=== PATIENT | female | born 1930 | race Caucasian/White ===

== ENCOUNTER 2017-03-30 03:37 | Inpatient (IN) | payer MEDICARE ==
[~2017-03-30] VITALS: Ht 170.2 cm; Wt 54.4 kg
[~2017-03-30 03:37] MED LIST: ADVAIR 250-501 EACH INH; ASPIRIN81 MG ORAL; AZELASTINE137 MCG/0. NS; CARDIZEM60 MG ORAL; COMBIGAN EYE DRO5 ML OP; DOCUSATE SODIU100 MG ORAL; IPRATROPIU0.2 MG/1 M HHN; LATANOPROST2.5 ML BOTH EYES; LISINOPRIL2.5 MG ORAL; LORATADINE10 M2 PO; MIRALAX17 G2 ORAL; MIRTAZAPINE15 M3 ORAL; NASACORT10.8 ML INH; PROBIOTIC1 EAC2 PO; SPIRIVA INHALE1 PUF1 INH; TUSSIN CHE100 MG/5 M PO; TYLENOL650 MG/20. ORAL; ZANTAC150 MG ORAL
[2017-03-30 06:00] VITALS: BP 88/63
[2017-03-30] MEDS ORDERED: MULTIVITAMINS1 EAC2 ORAL (06:17)
[2017-03-30] MEDS ORDERED: MUCINEX100 MG PO (06:18)
[2017-03-30] MEDS ORDERED: DULCOLAX5 MG PO (06:20)
[2017-03-30] MEDS ORDERED: LORAZEPAM I2 MG/1 ML ORAL (06:21)
[2017-03-30] MEDS ORDERED: LORATADINE10 M3 PO (06:24)
[2017-03-30] MEDS ORDERED: ACETAMINOPHEN325 M1 ORAL (06:24)
[2017-03-30] MEDS ORDERED: ARMOUR THYROID60 MG PO (06:25)
[2017-03-30] MEDS ORDERED: PROBIOTIC1 EAC2 PO (06:26)
[2017-03-30 06:35] VITALS: BP 92/64
[2017-03-30 08:05] VITALS: BP 93/64
[2017-03-30] MEDS ORDERED: Albuterol/Ipratropium 3ml neb HHN PRN (10:30)
[2017-03-30] MEDS ORDERED: Bisacodyl EC 5mg tab ORAL PRN (10:45)
[2017-03-30] MEDS ORDERED: LORazepam 0.5mg tab ORAL PRN (11:00)
[2017-03-30] MEDS ORDERED: guaiFENesin 100mg/5ml Liq ud ORAL PRN (11:00)
[2017-03-30] MEDS ORDERED: Miralax 17gm pkt ORAL PRN (11:00)
[2017-03-30] MEDS: NovoLOG Insulin Flexpen SUBQ SCH ×3 (11:30→21:00)
[2017-03-30 12:04] VITALS: BP 132/89
[2017-03-30] MEDS: dilTIAZem HCl 60mg tab ORAL SCH ×2 (12:36→18:29)
--- NOTE | 2017-03-30 13:31 | Consultation ---
History of Present Illness Present Illness HPI 86 yo female with mmp, Allergies: Coded Allergies: MORPHINE (Verified Allergy, Unknown, 08/28/16) PENICILLINS (Verified Allergy, Unknown, 08/28/16) SULFA (SULFONAMIDE ANTIBIOTICS) (Verified Allergy, Unknown, 08/28/16) Uncoded Allergies: Demoral (Allergy, Unknown, 08/28/16) thimersol (Allergy, Unknown, 08/28/16) Medication History Scheduled Aspirin* (Aspirin*), 81 MG ORAL DAILY, (Reported) Azelastine Hcl (Azelastine Hcl), 137 MCG NS BID, (Reported) Bisacodyl (Dulcolax), 5 MG PO NEEDED, (Reported) Brimonidine Tartrate/Timolol (Combigan Eye Drops), 5 ML OP BID, (Reported) Diltiazem Hcl* (Cardizem*), 60 MG ORAL TID, (Reported) Docusate Sodium* (Docusate Sodium*), 100 MG ORAL TWICE A DAY, (Reported) Fluticasone/Salmeterol (Advair 250-50 Diskus), 1 PUFF INH BID, (Reported) Guaifenesin (Mucinex), 600 MG PO BID, (Reported) Lactobacillus Acidophilus (Probiotic), 1 EACH PO DAILY, (Reported) Lactobacillus Acidophilus (Probiotic), 1 EACH PO DAILY, (Reported) Latanoprost* (Xalatan*), 1 DROP BOTH EYES BEDTIME, (Reported) Lisinopril* (Lisinopril*), 2.5 MG ORAL DAILY, (Reported) Loratadine (Loratadine), 10 MG PO DAILY, (Reported) Loratadine (Loratadine), 10 MG PO DAILY, (Reported) Mirtazapine* (Mirtazapine*), 15 MG ORAL BEDTIME, (Reported) Multivitamins* (Multivitamins*), 1 TAB ORAL DAILY, (Reported) Polyethylene Glycol 3350* (Miralax*), 17 GM ORAL DAILY, (Reported) Ranitidine Hcl* (Zantac*), 150 MG ORAL TWICE A DAY, (Reported) Thyroid,Pork ([place] Thyroid), 60 MG PO ACBREAKFAST, (Reported) Tiotropium [place] (Spiriva), 2 PUFF INH DAILY, (Reported) Triamcinolone Acetonide (Nasacort), 55 MCG INH BID, (Reported) Scheduled PRN Acetaminophen (Acetaminophen), 325 MG ORAL Q6H PRN for For Pain, (Reported) Acetaminophen* (Acetaminophen 325MG Tablet*), 325 MG ORAL Q6H PRN for Pain Scale (3-5), (Reported) Guaifenesin (Tussin Chest Congestion), 100 MG PO Q6HR PRN for For Cough, ( Reported) Ipratropium [place] 0.5MG/2.5ML (Ipratropium [place] 0.5MG/2.5ML), 0.5 MG HHN Q6H PRN for Shortness of Breath, (Reported) Lorazepam (Lorazepam Intensol), 1 MG ORAL NEEDED PRN for For Anxiety, ( Reported) Patient History Healthcare decision maker Resuscitation status Advanced Directive on File Physical Exam Last 24 Hour Vital Signs Date Time Temp Pulse Resp B/P (MAP) Pulse Ox O2 Delivery O2 Flow Rate FiO2 03/30/17 12:36 96 132/89 03/30/17 12:04 98.2 96 20 132/89 98 Room Air 03/30/17 08:05 97.3 96 20 93/64 95 Room Air 03/30/17 06:35 92/64 03/30/17 06:00 97.4 110 18 88/63 94 Room Air Intake and Output 03/30/17 03/31/17 19:00 07:00 Intake Total 240 ml Balance 240 ml Intake Oral 240 ml # Voids 1 Height (Feet): 5 Height (Inches): 7.00 Weight (Pounds): 120 Medications Current Medications Medications (Trade) Dose Ordered Sig/Say Route PRN Reason Start Time Stop Time Status Last Admin Dose Admin Acetaminophen (Tylenol) 325 mg Q6H PRN ORAL Mild Pain/Temp > 100.5 03/30/17 10:45 04/29/17 10:44 Albuterol/ Ipratropium (DuoNeb 0.5-3(2.5)mg/3ml) 3 ml Q4H PRN HHN Shortness of Breath 03/30/17 10:30 04/04/17 10:29 Albuterol/ Ipratropium (DuoNeb 0.5-3(2.5)mg/3ml) 3 ml Q8HRT HHN 03/30/17 15:00 04/04/17 14:59 Aspirin (ASA) 81 mg DAILY ORAL 03/31/17 09:00 04/30/17 08:59 Bisacodyl (Dulcolax) 5 mg DAILYPRN PRN ORAL Constipation 03/30/17 10:45 04/29/17 10:44 Cetirizine HCl (ZyrTEC) 10 mg DAILY PRN ORAL allergy 03/30/17 11:00 04/29/17 10:59 Dextrose (Dextrose 50%) STAT PRN IV Hypoglycemia 03/30/17 10:45 04/29/17 10:44 Diltiazem HCl (Cardizem) 60 mg TID ORAL 03/30/17 13:00 04/29/17 12:59 03/30/17 12:36 Docusate Sodium (Colace) 100 mg TWICE A DAY ORAL 03/30/17 18:00 04/29/17 17:59 Dorzolamide/ Timolol (Cosopt) 1 drop BID BOTH EYES 03/30/17 18:00 04/29/17 17:59 Guaifenesin (Mucinex ER) 600 mg TWICE A DAY ORAL 03/30/17 18:00 04/29/17 17:59 Guaifenesin (Robitussin) 100 mg Q6H PRN ORAL For Cough 03/30/17 11:00 04/29/17 10:59 Heparin Sodium (Porcine) (Heparin 5000 units/ml) 5,000 units EVERY 12 HOURS SUBQ 03/30/17 21:00 04/29/17 20:59 Insulin Aspart (NovoLOG) BEFORE MEALS AND HS SUBQ 03/30/17 11:30 04/29/17 11:29 Lactobacillus Acidophilus (Culturelle) 1 tab DAILY ORAL 03/31/17 09:00 04/30/17 08:59 Latanoprost (Xalatan) 1 drop BEDTIME BOTH EYES 03/30/17 21:00 04/29/17 20:59 Lisinopril (Zestril) 2.5 mg DAILY ORAL 03/31/17 09:00 04/30/17 08:59 Lorazepam (Ativan) 0.5 mg Q8H PRN ORAL For Anxiety 03/30/17 11:00 04/06/17 10:59 Methylprednisolone Sodium Succinate (Solu-MEDROL) 80 mg EVERY 8 HOURS IVP 03/30/17 14:00 04/29/17 13:59 Mirtazapine (Remeron) 15 mg BEDTIME ORAL 03/30/17 21:00 04/29/17 20:59 Non-Formulary Medication (Non-Formulary Med) 1 ea BID INH 03/30/17 18:00 04/29/17 17:59 UNV Polyethylene Glycol (Miralax) 17 gm DAILY PRN ORAL Constipation 03/30/17 11:00 04/29/17 10:59 Ranitidine HCl (Zantac) 150 mg TWICE A DAY ORAL 03/30/17 18:00 04/29/17 17:59 Thyroid ([place] Thyroid) 60 mg ACBREAKFAST ORAL 03/31/17 06:30 04/30/17 06:29 Chauncey Giordano M.D. Mar 30, 2017 13:31
[2017-03-30] MEDS: Solu-MEDROL 40mg Inj IVP SCH ×2 (13:40→22:09)
[2017-03-30] MEDS: Albuterol/Ipratropium 3ml neb HHN SCH ×2 (14:48→22:59)
[2017-03-30 16:03] VITALS: BP 132/76
--- NOTE | 2017-03-30 17:19 | History & Physical ---
History and Physical History & Physicial Dictated for Int Med Dr Colon no. [id number]. PATRICIA EARLY Mar 30, 2017 17:19
[2017-03-30] MEDS: Cosopt Opth Soln 10 mL Btl BOTH EYES SCH ×2 (18:00→18:29)
[2017-03-30] MEDS: Docusate 100mg cap ORAL SCH (18:29)
[2017-03-30] MEDS: guaiFENesin ER 600mg tab ORAL SCH (18:30)
--- NOTE | 2017-03-30 18:44 | Consultation ---
History of Present Illness General Date patient seen: Mar 30, 2017 Chief Complaint: Shortness of breath Referring physician: Dr. Lazaro Reason for Consultation: Shortenss of breath Present Illness HPI The patient is a 86-year old gentle lady with pmhx HTN COPD dyslipidemia anxiety disorder, depression, hypothyroidism, lung cancer, cerebral anuerysm and glaucoma who presents to ED complaining of shortness of breath. She is a resident of [facility] and according to staff the patient became short of breath acutely. EMS was called and subsequently she was initially transported to [facility] where she was diagnosed to have COPD exacerbation. She was then transferred to [facility] for insurance purposes and I was asked to consult on this case from pulmonary and internal medicine point of view for treatment and managment of the patients serious medical condition. The patient is awake but noticebly weak and has complaints of difficulty "catching her breath". Patient has been initiated on supplemental oxygen, breathing treatments and systemic corticosteroids to calm an apparent excacerbation of obstructive lung disease. No complaints of hemoptysis, productive cough, fever or chills, no complaints of chest pain or headache. Allergies: Coded Allergies: MEPERIDINE (Unverified Allergy, Unknown, 04/01/17) MORPHINE (Verified Allergy, Unknown, 08/28/16) PENICILLINS (Verified Allergy, Unknown, 08/28/16) SULFA (SULFONAMIDE ANTIBIOTICS) (Verified Allergy, Unknown, 08/28/16) THIMEROSAL (Unverified Allergy, Unknown, 04/01/17) Uncoded Allergies: Demoral (Allergy, Unknown, 08/28/16) thimersol (Allergy, Unknown, 08/28/16) Medication History Scheduled Aspirin* (Aspirin*), 81 MG ORAL DAILY, (Reported) Azelastine Hcl (Azelastine Hcl), 137 MCG NS BID, (Reported) Bisacodyl (Dulcolax), 5 MG PO NEEDED, (Reported) Brimonidine Tartrate/Timolol (Combigan Eye Drops), 5 ML OP BID, (Reported) Diltiazem Hcl* (Cardizem*), 60 MG ORAL TID, (Reported) Docusate Sodium* (Docusate Sodium*), 100 MG ORAL TWICE A DAY, (Reported) Fluticasone/Salmeterol (Advair 250-50 Diskus), 1 PUFF INH BID, (Reported) Guaifenesin (Mucinex), 600 MG PO BID, (Reported) Lactobacillus Acidophilus (Probiotic), 1 EACH PO DAILY, (Reported) Lactobacillus Acidophilus (Probiotic), 1 EACH PO DAILY, (Reported) Latanoprost* (Xalatan*), 1 DROP BOTH EYES BEDTIME, (Reported) Lisinopril* (Lisinopril*), 2.5 MG ORAL DAILY, (Reported) Loratadine (Loratadine), 10 MG PO DAILY, (Reported) Loratadine (Loratadine), 10 MG PO DAILY, (Reported) Mirtazapine* (Mirtazapine*), 15 MG ORAL BEDTIME, (Reported) Multivitamins* (Multivitamins*), 1 TAB ORAL DAILY, (Reported) Polyethylene Glycol 3350* (Miralax*), 17 GM ORAL DAILY, (Reported) Ranitidine Hcl* (Zantac*), 150 MG ORAL TWICE A DAY, (Reported) Thyroid,Pork ([place] Thyroid), 60 MG PO ACBREAKFAST, (Reported) Tiotropium [place] (Spiriva), 2 PUFF INH DAILY, (Reported) Triamcinolone Acetonide (Nasacort), 55 MCG INH BID, (Reported) Scheduled PRN Acetaminophen (Acetaminophen), 325 MG ORAL Q6H PRN for For Pain, (Reported) Acetaminophen* (Acetaminophen 325MG Tablet*), 325 MG ORAL Q6H PRN for Pain Scale (3-5), (Reported) Guaifenesin (Tussin Chest Congestion), 100 MG PO Q6HR PRN for For Cough, ( Reported) Ipratropium [place] 0.5MG/2.5ML (Ipratropium [place] 0.5MG/2.5ML), 0.5 MG HHN Q6H PRN for Shortness of Breath, (Reported) Lorazepam (Lorazepam Intensol), 1 MG ORAL NEEDED PRN for For Anxiety, ( Reported) Patient History Healthcare decision maker Resuscitation status Advanced Directive on File Past Medical/Surgical History Past Medical/Surgical History: (1) Episode of generalized weakness (2) COPD (chronic obstructive pulmonary disease) (3) Shortness of breath (4) Anxiety (5) Cough (6) Hypercholesteremia (7) Depression (8) Hypothyroidism (9) Lung cancer (10) Glaucoma (11) Cerebral aneurysm (12) HTN (hypertension) Review of Systems Constitutional: Reports: malaise, weakness Respiratory: Reports: shortness of breath, wheezing Physical Exam General Appearance: no apparent distress, alert Lines, tubes and drains: peripheral HEENT: normocephalic, atraumatic, anicteric, PERRL Neck: non-tender, normal alignment, supple, normal inspection Respiratory/Chest: chest wall non-tender, decreased breath sounds, accessory muscle use, crackles/rales, expiratory wheezing, inspiratory wheezing Breasts: no masses Cardiovascular/Chest: normal peripheral pulses, normal rate, regular rhythm, no JVD Abdomen: normal bowel sounds, non tender, soft, no organomegaly, no mass Genitourinary/Rectal: normal genital exam, normal rectal exam Extremities: normal range of motion, non-tender, normal inspection, no calf tenderness Skin Exam: normal pigmentation, warm/dry 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: 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 normal, no motor/sensory deficits Last 24 Hour Vital Signs Date Time Temp Pulse Resp B/P (MAP) Pulse Ox O2 Delivery O2 Flow Rate FiO2 03/30/17 18:29 91 132/76 03/30/17 16:03 98.0 91 20 132/76 98 Room Air 03/30/17 14:48 Room Air 03/30/17 14:48 Room Air 03/30/17 12:36 96 132/89 03/30/17 12:04 98.2 96 20 132/89 98 Room Air 03/30/17 08:05 97.3 96 20 93/64 95 Room Air 03/30/17 06:35 92/64 03/30/17 06:00 97.4 110 18 88/63 94 Room Air Intake and Output 03/30/17 03/31/17 19:00 07:00 Intake Total 360 ml Balance 360 ml Intake Oral 360 ml # Voids 2 Laboratory Tests Test 03/30/17 13:35 Phosphorus Level 3.5 mg/dL (2.5-4.8) Height (Feet): 5 Height (Inches): 7.00 Weight (Pounds): 120 Medications Current Medications Medications (Trade) Dose Ordered Sig/Say Route PRN Reason Start Time Stop Time Status Last Admin Dose Admin Acetaminophen (Tylenol) 325 mg Q6H PRN ORAL Mild Pain/Temp > 100.5 03/30/17 10:45 04/29/17 10:44 Albuterol/ Ipratropium (DuoNeb 0.5-3(2.5)mg/3ml) 3 ml Q4H PRN HHN Shortness of Breath 03/30/17 10:30 04/04/17 10:29 Albuterol/ Ipratropium (DuoNeb 0.5-3(2.5)mg/3ml) 3 ml Q8HRT HHN 03/30/17 15:00 04/04/17 14:59 Aspirin (ASA) 81 mg DAILY ORAL 03/31/17 09:00 04/30/17 08:59 Bisacodyl (Dulcolax) 5 mg DAILYPRN PRN ORAL Constipation 03/30/17 10:45 04/29/17 10:44 Cetirizine HCl (ZyrTEC) 10 mg DAILY PRN ORAL allergy 03/30/17 11:00 04/29/17 10:59 Dextrose (Dextrose 50%) STAT PRN IV Hypoglycemia 03/30/17 10:45 04/29/17 10:44 Diltiazem HCl (Cardizem) 60 mg TID ORAL 03/30/17 13:00 04/29/17 12:59 03/30/17 18:29 Docusate Sodium (Colace) 100 mg TWICE A DAY ORAL 03/30/17 18:00 04/29/17 17:59 03/30/17 18:29 Dorzolamide/ Timolol (Cosopt) 1 drop BID BOTH EYES 03/30/17 18:00 04/29/17 17:59 Guaifenesin (Mucinex ER) 600 mg TWICE A DAY ORAL 03/30/17 18:00 04/29/17 17:59 03/30/17 18:30 Guaifenesin (Robitussin) 100 mg Q6H PRN ORAL For Cough 03/30/17 11:00 04/29/17 10:59 Heparin Sodium (Porcine) (Heparin 5000 units/ml) 5,000 units EVERY 12 HOURS SUBQ 03/30/17 21:00 04/29/17 20:59 Insulin Aspart (NovoLOG) BEFORE MEALS AND HS SUBQ 03/30/17 11:30 04/29/17 11:29 Lactobacillus Acidophilus (Culturelle) 1 tab DAILY ORAL 03/31/17 09:00 04/30/17 08:59 Latanoprost (Xalatan) 1 drop BEDTIME BOTH EYES 03/30/17 21:00 04/29/17 20:59 Lisinopril (Zestril) 2.5 mg DAILY ORAL 03/31/17 09:00 04/30/17 08:59 Lorazepam (Ativan) 0.5 mg Q8H PRN ORAL For Anxiety 03/30/17 11:00 04/06/17 10:59 Methylprednisolone Sodium Succinate (Solu-MEDROL) 80 mg EVERY 8 HOURS IVP 03/30/17 14:00 04/29/17 13:59 03/30/17 13:40 Mirtazapine (Remeron) 15 mg BEDTIME ORAL 03/30/17 21:00 04/29/17 20:59 Non-Formulary Medication (Non-Formulary Med) 1 ea BID INH 03/30/17 18:00 04/29/17 17:59 UNV Polyethylene Glycol (Miralax) 17 gm DAILY PRN ORAL Constipation 03/30/17 11:00 04/29/17 10:59 Ranitidine HCl (Zantac) 150 mg TWICE A DAY ORAL 03/30/17 18:00 04/29/17 17:59 03/30/17 18:29 Thyroid ([place] Thyroid) 60 mg ACBREAKFAST ORAL 03/31/17 06:30 04/30/17 06:29 Assessment/Plan Status: stable, progressing Assessment/Plan Acute dyspnea Acute COPD excacerbation Hx Lung Cancer Hx COPD HTN Hypothyroidism Anxiety disorder Depression Dyslipidemia Plan Supplemental oxygen titrate fio2 up maintain o2 sat above 92% Aspiration precautions Labs examined Breathing treatments as needed for SOB Systemic corticosteroids Pulmonary hygiene AAMIR HAMMER Mar 30, 2017 18:44
[2017-03-30 20:16] VITALS: BP 95/53
[2017-03-30] MEDS: Heparin 5000 units/ml inj SUBQ SCH (21:00)
[2017-03-30] MEDS: Latanoprost 0.005% Opth 2.5ml Soln BOTH EYES SCH (21:00)
[2017-03-31] VITALS (7 sets, daily range): BP systolic 91–107; BP diastolic 54–89
--- NOTE | 2017-03-31 03:00 | History and Physical Report ---
DATE OF ADMISSION: 03/30/2017 Chief Complaint: The patient is an 86-year-old white female, who presents with chief complaint of shortness of breath. History of PRESENT ILLNESS: Much of the history and physical was obtained from the patient's chart. The patient herself is upset. The patient states "just let me sleep." According to the medical record, the patient is a resident of [facility]. According to staff at [facility], the patient became short of breath acutely on 03/29/2017. EMS was called. The patient was transported to [facility] emergency room. The patient was diagnosed with COPD exacerbation. The patient is transferred to [facility] for insurance purposes. The patient was admitted for chronic obstructive pulmonary disease, acute exacerbation. PAST MEDICAL HISTORY: Significant for: 1. Chronic obstructive pulmonary disease. 2. History of lung cancer in 2013. 3. History of cerebral aneurysm. 4. Hypercholesterolemia. 5. Hypothyroidism. 6. Anxiety. 7. Depression. 8. Glaucoma. PAST SURGICAL HISTORY: The patient denies. MEDICATIONS: Current medications from [facility]: 1. Acetylcysteine one spray in each nostril twice daily. 2. Triamcinolone (Nasacort) one spray in both nostrils twice daily. 3. Multivitamin one tablet p.o. daily. 4. Mucinex 800 mg one tablet p.o. twice daily. 5. Latanoprost ophthalmic solution 0.005% one drop to both eyes daily at bedtime. 6. Combigan ophthalmic solution one drop to both eyes b.i.d. 7. [place] Thyroid 80 mg p.o. daily. 8. Atrovent nebulized q.6 h. p.r.n. 9. Advair 250/50 mcg one puff p.o. twice daily. 10. Spiriva 18 mcg two puffs p.o. daily. 11. Vitamin D3 50,000 units p.o. q. weekly on Sunday. 12. Zantac 150 mg one tablet p.o. twice daily. 13. Lisinopril 2.5 mg one tablet p.o. daily. 14. Probiotic 1.5 billion cells one capsule p.o. daily. 15. Claritin 10 mg one tablet p.o. every morning. 16. MiraLax 18 g p.o. daily. 17. Aspirin 81 mg one tablet p.o. every morning. 18. Diltiazem 60 mg one tablet p.o. t.i.d. 19. Compazine 5 mg one tablet p.o. twice daily p.r.n. 20. Dulcolax 5 mg one tablet p.o. daily p.r.n. 21. Ativan 1 mg one tablet p.o. q.4 h. p.r.n. 22. [place] 5/325 mg one tablet p.o. q.6 h. p.r.n. ALLERGIES: 1. Morphine. 2. Penicillin. 3. Sulfa. 4. Thimerosal. Social History: The patient is single and lives at [facility]. The patient denies tobacco use, however, was heavy smoker previously. The patient denies alcohol use. Review Of Systems: Unable to assess secondary to the patient's mental status. PHYSICAL EXAMINATION: Vital Signs: Temperature is 97.3, respirations 20, pulse 96, blood pressure 93/64, and oxygen saturation 95% on room air. General: The patient is a thin-appearing elderly female, no apparent distress. HEENT: Eyes, pupils are equal and responsive to light and accommodation. Extraocular movements are intact. NECK: Supple without lymphadenopathy. Chest: Decreased breath sounds in bilateral bases with crackles. Otherwise, clear to auscultation without wheezes or rales. Cardiovascular: Regular rhythm and rate. S1 and S2 are normal without murmurs, rubs, or gallops. Abdomen: Soft, nontender, and nondistended. Positive bowel sounds. No evidence of hepatosplenomegaly. Currently, no rebound or guarding noted. EXTREMITIES: Negative for clubbing, cyanosis, or edema. RECTAL/GENITAL: Refused. Neurologic: Cranial nerves II to XII are grossly intact without focal deficits. Motor strength is 5/5 bilaterally. Deep tendon reflexes are 2+ plantar. Laboratory Studies: WBC 10.1, hemoglobin 13.4, hematocrit 39.9, and platelets 302,000. Sodium 135, potassium 3.5, chloride 105, CO2 of 18, BUN 12, creatinine 0.64, and glucose 106. DIAGNOSTIC DATA: Chest x-ray is pending. ASSESSMENT: This is an 86-year-old white female, 1. Shortness of breath. 2. Cough. 3. Chronic obstructive pulmonary disease. 4. History of lung cancer. 5. Hypertension. 6. Hypothyroidism. 7. Hypercholesterolemia. 8. Glaucoma. 9. Anxiety/depression. 10. History of cerebral aneurysm. TREATMENT: 1. Shortness of breath/cough/chronic obstructive pulmonary disease. A Pulmonary consultation obtained with Dr. Gurpreet Gutierrez. Continue albuterol and Atrovent nebulized as above. The patient has been started on intravenous Solu-Medrol. Repeat chest x-ray is pending. We will follow recommendations of Pulmonary. 2. History of lung cancer. 3. Hypertension. Continue diltiazem as above. Continue lisinopril as above. 4. Hypercholesterolemia. 5. Glaucoma. Continue Combigan and latanoprost as above. 6. Anxiety/depression. 7. History of cerebral aneurysm. Vance Lazaro M.D. DR: Alley JOB#: [id number] CC:
[2017-03-31] MEDS: Solu-MEDROL 40mg Inj IVP SCH ×2 (06:09→13:36)
[2017-03-31] MEDS: NovoLOG Insulin Flexpen SUBQ SCH ×4 (06:26→20:43)
[2017-03-31 07:34] LABS: ANION GAP 15 (5-15); CALCIUM 9.7 mg/dL (8.6-10.2); CARBON DIOXIDE 25 mEQ/L (20-30); CHLORIDE 103 mEQ/L (98-107); CREATININE 0.6 mg/dL (0.5-0.9); HEMOLYSIS 0; MAGNESIUM 1.9 mg/dL (1.7-2.5); POTASSIUM 4.4 mEQ/L (3.4-4.9); SODIUM 143 mEQ/L (135-145)
[2017-03-31 07:42] LABS: MEAN CORPUSCULAR HEMOGLOBIN 27.4 PG (27.0-31.0); MEAN CORPUSCULAR HGB CONC 32.5 G/DL (32.0-36.0); MEAN CORPUSCULAR VOLUME 84 FL (80-99); MEAN PLATELET VOLUME 6.1 FL (6.5-10.1); PLATELET COUNT 372 K/UL (150-450); RED CELL DISTRIBUTION WIDTH 12.4 % (11.6-14.8); WHITE BLOOD COUNT 6.1 K/UL (4.8-10.8)
[2017-03-31] MEDS: Albuterol/Ipratropium 3ml neb HHN SCH ×3 (08:30→19:32)
[2017-03-31] MEDS: dilTIAZem HCl 60mg tab ORAL SCH ×3 (09:00→17:11)
[2017-03-31] MEDS: Lisinopril 2.5mg tab ORAL SCH (09:00)
[2017-03-31] MEDS: guaiFENesin ER 600mg tab ORAL SCH ×2 (09:00→17:11)
[2017-03-31] MEDS: Cosopt Opth Soln 10 mL Btl BOTH EYES SCH ×2 (09:20→17:11)
[2017-03-31] MEDS: Aspirin Baby 81mg ORAL SCH (09:21)
[2017-03-31] MEDS: Lactobacillus-GG tablet ORAL SCH (09:21)
[2017-03-31] MEDS: Docusate 100mg cap ORAL SCH ×2 (09:21→17:11)
[2017-03-31] MEDS: Heparin 5000 units/ml inj SUBQ SCH ×2 (09:28→20:42)
[2017-03-31 10:17] LABS: BAND NEUTROPHILS % (MANUAL) 4 % (0-8); BASOPHILS % (MANUAL) 0 % (0-2); EOSINOPHILS % (MANUAL) 0 % (0-3); HYPOCHROMASIA 1+; LYMPHOCYTES % (MANUAL) 13 % (20-45); NEUTROPHILS % (MANUAL) 82 % (45-75); PLATELET ESTIMATE ADEQUATE; PLATELET MORPHOLOGY NORMAL; TOTAL CELLS COUNTED 100
--- NOTE | 2017-03-31 13:50 | Internal Med Progress Note ---
Subjective Date of Service: Mar 31, 2017 Physician Name Early,Patricia Attending Physician Osmin Colon MD Current Medications Medications (Trade) Dose Ordered Sig/Say Route PRN Reason Start Time Stop Time Status Last Admin Dose Admin Acetaminophen (Tylenol) 325 mg Q6H PRN ORAL Mild Pain/Temp > 100.5 03/30/17 10:45 04/29/17 10:44 Albuterol/ Ipratropium (DuoNeb 0.5-3(2.5)mg/3ml) 3 ml Q4H PRN HHN Shortness of Breath 03/30/17 10:30 04/04/17 10:29 Albuterol/ Ipratropium (DuoNeb 0.5-3(2.5)mg/3ml) 3 ml Q8HRT HHN 03/30/17 15:00 04/04/17 14:59 Aspirin (ASA) 81 mg DAILY ORAL 03/31/17 09:00 04/30/17 08:59 03/31/17 09:21 Bisacodyl (Dulcolax) 5 mg DAILYPRN PRN ORAL Constipation 03/30/17 10:45 04/29/17 10:44 Cetirizine HCl (ZyrTEC) 10 mg DAILY PRN ORAL allergy 03/30/17 11:00 04/29/17 10:59 Dextrose (Dextrose 50%) STAT PRN IV Hypoglycemia 03/30/17 10:45 04/29/17 10:44 Diltiazem HCl (Cardizem) 60 mg TID ORAL 03/30/17 13:00 04/29/17 12:59 03/30/17 18:29 Docusate Sodium (Colace) 100 mg TWICE A DAY ORAL 03/30/17 18:00 04/29/17 17:59 03/31/17 09:21 Dorzolamide/ Timolol (Cosopt) 1 drop BID BOTH EYES 03/30/17 18:00 04/29/17 17:59 03/31/17 09:20 Guaifenesin (Mucinex ER) 600 mg TWICE A DAY ORAL 03/30/17 18:00 04/29/17 17:59 03/30/17 18:30 Guaifenesin (Robitussin) 100 mg Q6H PRN ORAL For Cough 03/30/17 11:00 04/29/17 10:59 Heparin Sodium (Porcine) (Heparin 5000 units/ml) 5,000 units EVERY 12 HOURS SUBQ 03/30/17 21:00 04/29/17 20:59 03/31/17 09:28 Insulin Aspart (NovoLOG) BEFORE MEALS AND HS SUBQ 03/30/17 11:30 04/29/17 11:29 03/31/17 06:26 Lactobacillus Acidophilus (Culturelle) 1 tab DAILY ORAL 03/31/17 09:00 04/30/17 08:59 03/31/17 09:21 Latanoprost (Xalatan) 1 drop BEDTIME BOTH EYES 03/30/17 21:00 04/29/17 20:59 Lisinopril (Zestril) 2.5 mg DAILY ORAL 03/31/17 09:00 04/30/17 08:59 Lorazepam (Ativan) 0.5 mg Q8H PRN ORAL For Anxiety 03/30/17 11:00 04/06/17 10:59 Methylprednisolone Sodium Succinate (Solu-MEDROL) 80 mg EVERY 8 HOURS IVP 03/30/17 14:00 04/29/17 13:59 03/31/17 13:36 Mirtazapine (Remeron) 15 mg BEDTIME ORAL 03/30/17 21:00 04/29/17 20:59 Non-Formulary Medication (Non-Formulary Med) 1 ea BID INH 03/30/17 18:00 04/29/17 17:59 UNV Polyethylene Glycol (Miralax) 17 gm DAILY PRN ORAL Constipation 03/30/17 11:00 04/29/17 10:59 Ranitidine HCl (Zantac) 150 mg TWICE A DAY ORAL 03/30/17 18:00 04/29/17 17:59 03/31/17 09:21 Thyroid ([place] Thyroid) 60 mg ACBREAKFAST ORAL 03/31/17 06:30 04/30/17 06:29 03/31/17 06:22 Allergies: Coded Allergies: MORPHINE (Verified Allergy, Unknown, 08/28/16) PENICILLINS (Verified Allergy, Unknown, 08/28/16) SULFA (SULFONAMIDE ANTIBIOTICS) (Verified Allergy, Unknown, 08/28/16) Uncoded Allergies: Demoral (Allergy, Unknown, 08/28/16) thimersol (Allergy, Unknown, 08/28/16) ROS Limited/Unobtainable: No Constitutional: Reports: no symptoms HEENT: Reports: no symptoms Cardiovascular: Reports: no symptoms Respiratory: Reports: cough, shortness of breath Gastrointestinal/Abdominal: Reports: no symptoms Genitourinary: Reports: no symptoms Neurologic/Psychiatric: Reports: no symptoms Subjective 86 YO F admitted with shortness of breath. Cover for Int Gaudencio-Dr Colon Objective Last Vital Signs Date Time Temp Pulse Resp B/P (MAP) Pulse Ox O2 Delivery O2 Flow Rate FiO2 03/31/17 13:00 63 99/54 03/31/17 12:07 96.6 18 98 Room Air General Appearance: alert, thin EENT: PERRL/EOMI, normal ENT inspection, TMs normal Neck: non-tender, normal alignment, supple, normal inspection Cardiovascular: normal peripheral pulses, normal rate, regular rhythm, no gallop/murmur, no JVD Respiratory/Chest: respiratory distress, crackles/rales, rhonchi - bilaterally , expiratory wheezing Abdomen: normal bowel sounds, non tender, soft, no organomegaly, no mass Extremities: normal range of motion, non-tender 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, no motor/sensory deficits Skin: normal pigmentation, warm/dry Laboratory Tests Test 03/31/17 05:45 White Blood Count 6.1 K/UL (4.8-10.8) Red Blood Count 4.30 M/UL (4.20-5.40) Hemoglobin 11.8 G/DL (12.0-16.0) L Hematocrit 36.2 % (37.0-47.0) L Mean Corpuscular Volume 84 FL (80-99) Mean Corpuscular Hemoglobin 27.4 PG (27.0-31.0) Mean Corpuscular Hemoglobin Concent 32.5 G/DL (32.0-36.0) Red Cell Distribution Width 12.4 % (11.6-14.8) Platelet Count 372 K/UL (150-450) Mean Platelet Volume 6.1 FL (6.5-10.1) L Neutrophils (%) (Auto) % (45.0-75.0) Lymphocytes (%) (Auto) % (20.0-45.0) Monocytes (%) (Auto) % (1.0-10.0) Eosinophils (%) (Auto) % (0.0-3.0) Basophils (%) (Auto) % (0.0-2.0) Differential Total Cells Counted 100 Neutrophils % (Manual) 82 % (45-75) H Lymphocytes % (Manual) 13 % (20-45) L Monocytes % (Manual) 1 % (1-10) Eosinophils % (Manual) 0 % (0-3) Basophils % (Manual) 0 % (0-2) Band Neutrophils 4 % (0-8) Platelet Estimate Adequate Platelet Morphology Normal Hypochromasia 1+ Sodium Level 143 mEQ/L (135-145) Potassium Level 4.4 mEQ/L (3.4-4.9) Chloride Level 103 mEQ/L (98-107) Carbon Dioxide Level 25 mEQ/L (20-30) Anion Gap 15 (5-15) Blood Urea Nitrogen 25 mg/dL (7-23) H Creatinine 0.6 mg/dL (0.5-0.9) Estimat Glomerular Filtration Rate mL/min (>60) Glucose Level 135 mg/dL (74-106) H Calcium Level 9.7 mg/dL (8.6-10.2) Magnesium Level 1.9 mg/dL (1.7-2.5) Assessment/Plan Problem List: (1) Shortness of breath (2) Cough Assessment & Plan: Continue mucinex (3) COPD (chronic obstructive pulmonary disease) Assessment & Plan: continue duoneb per pulmonary (4) Lung cancer (5) HTN (hypertension) Assessment & Plan: Cont cardizem (6) Hypothyroidism (7) Hypercholesteremia (8) Glaucoma Assessment & Plan: Cont latanoprost and cosopt (9) Anxiety Assessment & Plan: see psych note. (10) Depression Assessment & Plan: see psych note. (11) Cerebral aneurysm Status: not improved PATRICIA EARLY Mar 31, 2017 13:50
[2017-03-31] MEDS: Latanoprost 0.005% Opth 2.5ml Soln BOTH EYES SCH (20:36)
--- NOTE | 2017-03-31 23:24 | Pulmonology Progress Note ---
Assessment/Plan Assessment/Plan Acute dyspnea-improving Acute COPD excacerbation Hx Lung Cancer Hx COPD HTN Hypothyroidism Anxiety disorder Depression Dyslipidemia Plan Supplemental oxygen titrate fio2 up maintain o2 sat above 92% Aspiration precautions Labs examined Breathing treatments as needed for SOB Systemic corticosteroids Pulmonary hygiene Subjective ROS Limited/Unobtainable: No Respiratory: Reports: shortness of breath, wheezing Allergies: Coded Allergies: MEPERIDINE (Unverified Allergy, Unknown, 04/01/17) MORPHINE (Verified Allergy, Unknown, 08/28/16) PENICILLINS (Verified Allergy, Unknown, 08/28/16) SULFA (SULFONAMIDE ANTIBIOTICS) (Verified Allergy, Unknown, 08/28/16) THIMEROSAL (Unverified Allergy, Unknown, 04/01/17) Uncoded Allergies: Demoral (Allergy, Unknown, 08/28/16) thimersol (Allergy, Unknown, 08/28/16) Objective Last 24 Hour Vital Signs Date Time Temp Pulse Resp B/P (MAP) Pulse Ox O2 Delivery O2 Flow Rate FiO2 03/31/17 20:00 96.6 63 20 100/64 100 Room Air 03/31/17 19:39 72 18 97 Room Air 03/31/17 19:32 75 18 99 Room Air 03/31/17 19:30 74 16 Room Air 03/31/17 18:02 67 99/89 03/31/17 17:11 63 91/54 03/31/17 16:18 96.4 63 18 91/54 98 Room Air 03/31/17 16:11 65 18 99 Room Air 03/31/17 16:09 Room Air 03/31/17 13:00 63 99/54 03/31/17 12:07 96.6 18 99/54 98 Room Air 03/31/17 09:00 107/62 03/31/17 09:00 63 107/62 03/31/17 08:45 Room Air 03/31/17 08:43 63 16 98 Room Air 03/31/17 08:43 63 16 Room Air 03/31/17 08:00 96.4 70 18 107/62 98 Room Air 03/31/17 04:06 96.4 60 20 95/58 99 Room Air 03/31/17 00:07 96.6 68 20 104/64 97 Room Air Intake and Output 03/31/17 04/01/17 19:00 07:00 Intake Total 240 ml Balance 240 ml Intake Oral 240 ml # Voids 1 General Appearance: no acute distress HEENT: normocephalic, atraumatic, PERRL Respiratory/Chest: chest wall non-tender, decreased breath sounds, accessory muscle use, expiratory wheezing, inspiratory wheezing Breasts: no masses Cardiovascular: normal peripheral pulses, normal rate, regular rhythm, no JVD Abdomen: normal bowel sounds, soft, non tender, no organomegaly, non distended Genitourinary: normal external genitalia Extremities: no cyanosis Skin: no rash 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, no motor/sensory deficits Laboratory Tests 03/31/17 05:45: White Blood Count 6.1, Red Blood Count 4.30, Hemoglobin 11.8L, Hematocrit 36.2L , Mean Corpuscular Volume 84, Mean Corpuscular Hemoglobin 27.4, Mean Corpuscular Hemoglobin Concent 32.5, Red Cell Distribution Width 12.4, Platelet Count 372, Mean Platelet Volume 6.1L, Neutrophils (%) (Auto) , Lymphocytes (%) ( Auto) , Monocytes (%) (Auto) , Eosinophils (%) (Auto) , Basophils (%) (Auto) , Differential Total Cells Counted 100, Neutrophils % (Manual) 82H, Lymphocytes % (Manual) 13L, Monocytes % (Manual) 1, Eosinophils % (Manual) 0, Basophils % ( Manual) 0, Band Neutrophils 4, Platelet Estimate Adequate, Platelet Morphology Normal, Hypochromasia 1+, Sodium Level 143, Potassium Level 4.4, Chloride Level 103, Carbon Dioxide Level 25, Anion Gap 15, Blood Urea Nitrogen 25H, Creatinine 0.6, Estimat Glomerular Filtration Rate , Glucose Level 135H, Calcium Level 9.7 , Magnesium Level 1.9 Current Medications Medications (Trade) Dose Ordered Sig/Say Route PRN Reason Start Time Stop Time Status Last Admin Dose Admin Acetaminophen (Tylenol) 325 mg Q6H PRN ORAL Mild Pain/Temp > 100.5 03/30/17 10:45 04/29/17 10:44 Al Hydroxide/Mg Hydroxide (Mylanta) 30 ml DAILY ORAL 04/01/17 09:00 05/01/17 08:59 Al Hydroxide/Mg Hydroxide (Mylanta) 30 ml DAILY PRN ORAL UPSET STOMACH 03/31/17 19:00 04/30/17 18:59 03/31/17 19:01 Albuterol/ Ipratropium (DuoNeb 0.5-3(2.5)mg/3ml) 3 ml Q4H PRN HHN Shortness of Breath 03/30/17 10:30 04/04/17 10:29 Albuterol/ Ipratropium (DuoNeb 0.5-3(2.5)mg/3ml) 3 ml Q8HRT HHN 03/30/17 15:00 04/04/17 14:59 03/31/17 19:32 Aspirin (ASA) 81 mg DAILY ORAL 03/31/17 09:00 04/30/17 08:59 03/31/17 09:21 Bisacodyl (Dulcolax) 5 mg DAILYPRN PRN ORAL Constipation 03/30/17 10:45 04/29/17 10:44 Cetirizine HCl (ZyrTEC) 10 mg DAILY PRN ORAL allergy 03/30/17 11:00 04/29/17 10:59 Dextrose (Dextrose 50%) STAT PRN IV Hypoglycemia 03/30/17 10:45 04/29/17 10:44 Diltiazem HCl (Cardizem) 60 mg TID ORAL 03/30/17 13:00 04/29/17 12:59 03/30/17 18:29 Docusate Sodium (Colace) 100 mg TWICE A DAY ORAL 03/30/17 18:00 04/29/17 17:59 03/31/17 17:11 Dorzolamide/ Timolol (Cosopt) 1 drop BID BOTH EYES 03/30/17 18:00 04/29/17 17:59 03/31/17 17:11 Guaifenesin (Mucinex ER) 600 mg TWICE A DAY ORAL 03/30/17 18:00 04/29/17 17:59 03/31/17 17:11 Guaifenesin (Robitussin) 100 mg Q6H PRN ORAL For Cough 03/30/17 11:00 04/29/17 10:59 Heparin Sodium (Porcine) (Heparin 5000 units/ml) 5,000 units EVERY 12 HOURS SUBQ 03/30/17 21:00 04/29/17 20:59 03/31/17 20:42 Insulin Aspart (NovoLOG) BEFORE MEALS AND HS SUBQ 03/30/17 11:30 04/29/17 11:29 03/31/17 20:43 Lactobacillus Acidophilus (Culturelle) 1 tab DAILY ORAL 03/31/17 09:00 04/30/17 08:59 03/31/17 09:21 Latanoprost (Xalatan) 1 drop BEDTIME BOTH EYES 03/30/17 21:00 04/29/17 20:59 03/31/17 20:36 Lisinopril (Zestril) 2.5 mg DAILY ORAL 03/31/17 09:00 04/30/17 08:59 Lorazepam (Ativan) 0.5 mg Q8H PRN ORAL For Anxiety 03/30/17 11:00 04/06/17 10:59 03/31/17 18:05 Mirtazapine (Remeron) 15 mg BEDTIME ORAL 03/30/17 21:00 04/29/17 20:59 03/31/17 20:36 Polyethylene Glycol (Miralax) 17 gm DAILY PRN ORAL Constipation 03/30/17 11:00 04/29/17 10:59 Prednisone (predniSONE) 60 mg DAILY ORAL 04/01/17 09:00 05/01/17 08:59 Ranitidine HCl (Zantac) 150 mg TWICE A DAY ORAL 03/30/17 18:00 04/29/17 17:59 03/31/17 17:11 Thyroid ([place] Thyroid) 60 mg ACBREAKFAST ORAL 03/31/17 06:30 04/30/17 06:29 03/31/17 06:22 AAMIR HAMMER Mar 31, 2017 23:24
[2017-04-01] VITALS: BP 112/83
[2017-04-01 04:00] VITALS: BP 118/65
[2017-04-01] MEDS: NovoLOG Insulin Flexpen SUBQ SCH ×4 (06:29→21:00)
[2017-04-01] MEDS: Albuterol/Ipratropium 3ml neb HHN SCH ×3 (07:49→22:11)
[2017-04-01 07:51] LABS: MEAN CORPUSCULAR VOLUME 85 FL (80-99); MEAN PLATELET VOLUME 6.4 FL (6.5-10.1); PLATELET COUNT 386 K/UL (150-450); RED BLOOD COUNT 4.34 M/UL (4.20-5.40); RED CELL DISTRIBUTION WIDTH 12.5 % (11.6-14.8); WHITE BLOOD COUNT 15.1 K/UL (4.8-10.8)
[2017-04-01 08:00] VITALS: BP 101/57
[2017-04-01 08:10] LABS: ANION GAP 14 (5-15); CALCIUM 9.6 mg/dL (8.6-10.2); CARBON DIOXIDE 24 mEQ/L (20-30); CHLORIDE 101 mEQ/L (98-107); CREATININE 0.7 mg/dL (0.5-0.9); HEMOLYSIS 6; POTASSIUM 4.3 mEQ/L (3.4-4.9); SODIUM 139 mEQ/L (135-145)
[2017-04-01] MEDS: Lisinopril 2.5mg tab ORAL SCH (09:00)
[2017-04-01] MEDS: dilTIAZem HCl 60mg tab ORAL SCH ×3 (09:00→17:17)
[2017-04-01] MEDS: Cosopt Opth Soln 10 mL Btl BOTH EYES SCH ×2 (09:38→17:22)
[2017-04-01] MEDS: Docusate 100mg cap ORAL SCH ×2 (09:39→17:22)
[2017-04-01] MEDS: Lactobacillus-GG tablet ORAL SCH (09:40)
[2017-04-01] MEDS: Aspirin Baby 81mg ORAL SCH (09:40)
[2017-04-01] MEDS: Heparin 5000 units/ml inj SUBQ SCH ×2 (09:44→20:58)
[2017-04-01] MEDS: guaiFENesin ER 600mg tab ORAL SCH ×2 (09:51→17:27)
[2017-04-01 11:27] LABS: BAND NEUTROPHILS % (MANUAL) 0 % (0-8); BASOPHILS % (MANUAL) 0 % (0-2); EOSINOPHILS % (MANUAL) 0 % (0-3); LYMPHOCYTES % (MANUAL) 10 % (20-45); NEUTROPHILS % (MANUAL) 86 % (45-75); PLATELET ESTIMATE ADEQUATE; PLATELET MORPHOLOGY NORMAL; TOTAL CELLS COUNTED 100
[2017-04-01 12:00] VITALS: BP 105/56
--- NOTE | 2017-04-01 15:03 | Internal Med Progress Note ---
Subjective Date of Service: Apr 01, 2017 Physician Name Patricia Early Attending Physician Osmin Colon MD Current Medications Medications (Trade) Dose Ordered Sig/Say Route PRN Reason Start Time Stop Time Status Last Admin Dose Admin Acetaminophen (Tylenol) 325 mg Q6H PRN ORAL Mild Pain/Temp > 100.5 03/30/17 10:45 04/29/17 10:44 Al Hydroxide/Mg Hydroxide (Mylanta) 30 ml DAILY ORAL 04/01/17 09:00 05/01/17 08:59 04/01/17 09:42 Al Hydroxide/Mg Hydroxide (Mylanta) 30 ml DAILY PRN ORAL UPSET STOMACH 03/31/17 19:00 04/30/17 18:59 03/31/17 19:01 Albuterol/ Ipratropium (DuoNeb 0.5-3(2.5)mg/3ml) 3 ml Q4H PRN HHN Shortness of Breath 03/30/17 10:30 04/04/17 10:29 Albuterol/ Ipratropium (DuoNeb 0.5-3(2.5)mg/3ml) 3 ml Q8HRT HHN 03/30/17 15:00 04/04/17 14:59 03/31/17 19:32 Aspirin (ASA) 81 mg DAILY ORAL 03/31/17 09:00 04/30/17 08:59 04/01/17 09:40 Bisacodyl (Dulcolax) 5 mg DAILYPRN PRN ORAL Constipation 03/30/17 10:45 04/29/17 10:44 Cetirizine HCl (ZyrTEC) 10 mg DAILY PRN ORAL allergy 03/30/17 11:00 04/29/17 10:59 Dextrose (Dextrose 50%) STAT PRN IV Hypoglycemia 03/30/17 10:45 04/29/17 10:44 Diltiazem HCl (Cardizem) 60 mg TID ORAL 03/30/17 13:00 04/29/17 12:59 03/30/17 18:29 Docusate Sodium (Colace) 100 mg TWICE A DAY ORAL 03/30/17 18:00 04/29/17 17:59 04/01/17 09:39 Dorzolamide/ Timolol (Cosopt) 1 drop BID BOTH EYES 03/30/17 18:00 04/29/17 17:59 04/01/17 09:38 Guaifenesin (Mucinex ER) 600 mg TWICE A DAY ORAL 03/30/17 18:00 04/29/17 17:59 04/01/17 09:51 Guaifenesin (Robitussin) 100 mg Q6H PRN ORAL For Cough 03/30/17 11:00 04/29/17 10:59 Heparin Sodium (Porcine) (Heparin 5000 units/ml) 5,000 units EVERY 12 HOURS SUBQ 03/30/17 21:00 04/29/17 20:59 04/01/17 09:44 Insulin Aspart (NovoLOG) BEFORE MEALS AND HS SUBQ 03/30/17 11:30 04/29/17 11:29 04/01/17 12:48 Lactobacillus Acidophilus (Culturelle) 1 tab DAILY ORAL 03/31/17 09:00 04/30/17 08:59 04/01/17 09:40 Latanoprost (Xalatan) 1 drop BEDTIME BOTH EYES 03/30/17 21:00 04/29/17 20:59 03/31/17 20:36 Lisinopril (Zestril) 2.5 mg DAILY ORAL 03/31/17 09:00 04/30/17 08:59 Lorazepam (Ativan) 0.5 mg Q8H PRN ORAL For Anxiety 03/30/17 11:00 04/06/17 10:59 03/31/17 18:05 Mirtazapine (Remeron) 15 mg BEDTIME ORAL 03/30/17 21:00 04/29/17 20:59 03/31/17 20:36 Polyethylene Glycol (Miralax) 17 gm DAILY PRN ORAL Constipation 03/30/17 11:00 04/29/17 10:59 Prednisone (predniSONE) 60 mg DAILY ORAL 04/01/17 09:00 05/01/17 08:59 04/01/17 09:41 Ranitidine HCl (Zantac) 150 mg TWICE A DAY ORAL 03/30/17 18:00 04/29/17 17:59 04/01/17 09:51 Thyroid ([place] Thyroid) 60 mg ACBREAKFAST ORAL 03/31/17 06:30 04/30/17 06:29 04/01/17 06:04 Allergies: Coded Allergies: MORPHINE (Verified Allergy, Unknown, 08/28/16) PENICILLINS (Verified Allergy, Unknown, 08/28/16) SULFA (SULFONAMIDE ANTIBIOTICS) (Verified Allergy, Unknown, 08/28/16) Uncoded Allergies: Demoral (Allergy, Unknown, 08/28/16) thimersol (Allergy, Unknown, 08/28/16) ROS Limited/Unobtainable: No Constitutional: Reports: no symptoms HEENT: Reports: no symptoms Cardiovascular: Reports: no symptoms Respiratory: Reports: no symptoms Gastrointestinal/Abdominal: Reports: no symptoms Genitourinary: Reports: no symptoms Neurologic/Psychiatric: Reports: no symptoms Subjective 86 YO F admitted with shortness of breath. Cover for Int Gaudencio-Dr Colon Objective Last Vital Signs Date Time Temp Pulse Resp B/P (MAP) Pulse Ox O2 Delivery O2 Flow Rate FiO2 04/01/17 13:00 62 105/56 04/01/17 12:00 97.4 18 98 Room Air Laboratory Tests Test 04/01/17 04:35 White Blood Count 15.1 K/UL (4.8-10.8) #H Red Blood Count 4.34 M/UL (4.20-5.40) Hemoglobin 12.1 G/DL (12.0-16.0) Hematocrit 36.7 % (37.0-47.0) L Mean Corpuscular Volume 85 FL (80-99) Mean Corpuscular Hemoglobin 28.0 PG (27.0-31.0) Mean Corpuscular Hemoglobin Concent 33.0 G/DL (32.0-36.0) Red Cell Distribution Width 12.5 % (11.6-14.8) Platelet Count 386 K/UL (150-450) Mean Platelet Volume 6.4 FL (6.5-10.1) L Neutrophils (%) (Auto) % (45.0-75.0) Lymphocytes (%) (Auto) % (20.0-45.0) Monocytes (%) (Auto) % (1.0-10.0) Eosinophils (%) (Auto) % (0.0-3.0) Basophils (%) (Auto) % (0.0-2.0) Differential Total Cells Counted 100 Neutrophils % (Manual) 86 % (45-75) H Lymphocytes % (Manual) 10 % (20-45) L Monocytes % (Manual) 4 % (1-10) Eosinophils % (Manual) 0 % (0-3) Basophils % (Manual) 0 % (0-2) Band Neutrophils 0 % (0-8) Platelet Estimate Adequate Platelet Morphology Normal Red Blood Cell Morphology Normal Sodium Level 139 mEQ/L (135-145) Potassium Level 4.3 mEQ/L (3.4-4.9) Chloride Level 101 mEQ/L (98-107) Carbon Dioxide Level 24 mEQ/L (20-30) Anion Gap 14 (5-15) Blood Urea Nitrogen 33 mg/dL (7-23) H Creatinine 0.7 mg/dL (0.5-0.9) Estimat Glomerular Filtration Rate mL/min (>60) Glucose Level 113 mg/dL (74-106) H Calcium Level 9.6 mg/dL (8.6-10.2) Objective General Appearance: alert, thin EENT: PERRL/EOMI, normal ENT inspection, TMs normal Neck: non-tender, normal alignment, supple, normal inspection Cardiovascular: normal peripheral pulses, normal rate, regular rhythm, no gallop/murmur, no JVD Respiratory/Chest: respiratory distress, crackles/rales, rhonchi - bilaterally , expiratory wheezing Abdomen: normal bowel sounds, non tender, soft, no organomegaly, no mass Extremities: normal range of motion, non-tender 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 (10) Depression Assessment & Plan: see psych note. (11) Cerebral aneurysm PATRICIA EARLY Apr 01, 2017 15:03
[2017-04-01 15:48] VITALS: BP 105/56
[2017-04-01 20:00] VITALS: BP 105/62
[2017-04-01] MEDS: Latanoprost 0.005% Opth 2.5ml Soln BOTH EYES SCH (20:54)
--- NOTE | 2017-04-01 22:56 | Pulmonology Progress Note ---
Assessment/Plan Assessment/Plan Acute dyspnea-improving Acute COPD excacerbation Hx Lung Cancer Hx COPD HTN Hypothyroidism Anxiety disorder Depression Dyslipidemia Plan Supplemental oxygen titrate fio2 up maintain o2 sat above 92% Aspiration precautions Labs examined Breathing treatments as needed for SOB Systemic corticosteroids Pulmonary hygiene DC planning from pulmonary point of view Subjective ROS Limited/Unobtainable: No Constitutional: Reports: fatigue Respiratory: Reports: shortness of breath, wheezing Allergies: Coded Allergies: MEPERIDINE (Unverified Allergy, Unknown, 04/01/17) MORPHINE (Verified Allergy, Unknown, 08/28/16) PENICILLINS (Verified Allergy, Unknown, 08/28/16) SULFA (SULFONAMIDE ANTIBIOTICS) (Verified Allergy, Unknown, 08/28/16) THIMEROSAL (Unverified Allergy, Unknown, 04/01/17) Uncoded Allergies: Demoral (Allergy, Unknown, 08/28/16) thimersol (Allergy, Unknown, 08/28/16) Objective Last 24 Hour Vital Signs Date Time Temp Pulse Resp B/P (MAP) Pulse Ox O2 Delivery O2 Flow Rate FiO2 04/01/17 22:12 Room Air 04/01/17 22:11 Room Air 04/01/17 20:00 97.0 72 18 105/62 100 Room Air 04/01/17 19:00 72 16 Room Air 04/01/17 17:17 67 105/56 04/01/17 15:48 98.0 67 20 105/56 98 Room Air 04/01/17 15:15 76 16 98 Room Air 04/01/17 15:15 Room Air 04/01/17 13:00 62 105/56 04/01/17 12:00 97.4 62 18 105/56 98 Room Air 04/01/17 09:00 101/57 04/01/17 09:00 72 101/57 04/01/17 08:00 97.0 72 20 101/57 99 Room Air 04/01/17 07:49 Room Air 04/01/17 07:49 76 16 Room Air 04/01/17 07:49 74 16 99 Room Air 04/01/17 04:00 97.0 56 20 118/65 98 04/01/17 00:00 96.1 60 20 112/83 99 Room Air 03/31/17 23:43 Room Air 03/31/17 23:41 Room Air Intake and Output 04/01/17 04/02/17 19:00 07:00 Intake Total 240 ml 120 ml Balance 240 ml 120 ml Intake Oral 240 ml 120 ml # Voids 2 2 # Bowel Movements 1 General Appearance: no acute distress HEENT: normocephalic, atraumatic, PERRL Respiratory/Chest: chest wall non-tender, decreased breath sounds, accessory muscle use, rhonchi, expiratory wheezing, inspiratory wheezing Breasts: no masses Cardiovascular: normal peripheral pulses, normal rate, regular rhythm, no JVD Abdomen: normal bowel sounds, soft, non tender, no organomegaly, non distended , no mass Genitourinary: normal external genitalia Extremities: no cyanosis Skin: no rash, no lesions 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, no motor/sensory deficits Laboratory Tests 04/01/17 04:35: White Blood Count 15.1#H, Red Blood Count 4.34, Hemoglobin 12.1, Hematocrit 36.7L, Mean Corpuscular Volume 85, Mean Corpuscular Hemoglobin 28.0, Mean Corpuscular Hemoglobin Concent 33.0, Red Cell Distribution Width 12.5, Platelet Count 386, Mean Platelet Volume 6.4L, Neutrophils (%) (Auto) , Lymphocytes (%) ( Auto) , Monocytes (%) (Auto) , Eosinophils (%) (Auto) , Basophils (%) (Auto) , Differential Total Cells Counted 100, Neutrophils % (Manual) 86H, Lymphocytes % (Manual) 10L, Monocytes % (Manual) 4, Eosinophils % (Manual) 0, Basophils % ( Manual) 0, Band Neutrophils 0, Platelet Estimate Adequate, Platelet Morphology Normal, Red Blood Cell Morphology Normal, Sodium Level 139, Potassium Level 4.3 , Chloride Level 101, Carbon Dioxide Level 24, Anion Gap 14, Blood Urea Nitrogen 33H, Creatinine 0.7, Estimat Glomerular Filtration Rate , Glucose Level 113H, Calcium Level 9.6 Current Medications Medications (Trade) Dose Ordered Sig/Say Route PRN Reason Start Time Stop Time Status Last Admin Dose Admin Acetaminophen (Tylenol) 325 mg Q6H PRN ORAL Mild Pain/Temp > 100.5 03/30/17 10:45 04/29/17 10:44 Al Hydroxide/Mg Hydroxide (Mylanta) 30 ml DAILY ORAL 04/01/17 09:00 05/01/17 08:59 04/01/17 09:42 Al Hydroxide/Mg Hydroxide (Mylanta) 30 ml DAILY PRN ORAL UPSET STOMACH 03/31/17 19:00 04/30/17 18:59 03/31/17 19:01 Albuterol/ Ipratropium (DuoNeb 0.5-3(2.5)mg/3ml) 3 ml Q4H PRN HHN Shortness of Breath 03/30/17 10:30 04/04/17 10:29 Albuterol/ Ipratropium (DuoNeb 0.5-3(2.5)mg/3ml) 3 ml Q8HRT HHN 03/30/17 15:00 04/04/17 14:59 03/31/17 19:32 Aspirin (ASA) 81 mg DAILY ORAL 03/31/17 09:00 04/30/17 08:59 04/01/17 09:40 Bisacodyl (Dulcolax) 5 mg DAILYPRN PRN ORAL Constipation 03/30/17 10:45 04/29/17 10:44 Cetirizine HCl (ZyrTEC) 10 mg DAILY PRN ORAL allergy 03/30/17 11:00 04/29/17 10:59 Dextrose (Dextrose 50%) STAT PRN IV Hypoglycemia 03/30/17 10:45 04/29/17 10:44 Diltiazem HCl (Cardizem) 60 mg TID ORAL 04/01/17 18:00 05/01/17 17:59 Docusate Sodium (Colace) 100 mg TWICE A DAY ORAL 03/30/17 18:00 04/29/17 17:59 04/01/17 17:22 Dorzolamide/ Timolol (Cosopt) 1 drop BID BOTH EYES 03/30/17 18:00 04/29/17 17:59 04/01/17 17:22 Guaifenesin (Mucinex ER) 600 mg TWICE A DAY ORAL 03/30/17 18:00 04/29/17 17:59 04/01/17 17:27 Guaifenesin (Robitussin) 100 mg Q6H PRN ORAL For Cough 03/30/17 11:00 04/29/17 10:59 04/01/17 17:21 Heparin Sodium (Porcine) (Heparin 5000 units/ml) 5,000 units EVERY 12 HOURS SUBQ 03/30/17 21:00 04/29/17 20:59 04/01/17 20:58 Insulin Aspart (NovoLOG) BEFORE MEALS AND HS SUBQ 03/30/17 11:30 04/29/17 11:29 04/01/17 17:34 Lactobacillus Acidophilus (Culturelle) 1 tab DAILY ORAL 03/31/17 09:00 04/30/17 08:59 04/01/17 09:40 Latanoprost (Xalatan) 1 drop BEDTIME BOTH EYES 03/30/17 21:00 04/29/17 20:59 03/31/17 20:36 Lisinopril (Zestril) 2.5 mg DAILY ORAL 03/31/17 09:00 04/30/17 08:59 Lorazepam (Ativan) 0.5 mg Q8H PRN ORAL For Anxiety 03/30/17 11:00 04/06/17 10:59 03/31/17 18:05 Mirtazapine (Remeron) 15 mg BEDTIME ORAL 03/30/17 21:00 04/29/17 20:59 04/01/17 20:55 Polyethylene Glycol (Miralax) 17 gm DAILY PRN ORAL Constipation 03/30/17 11:00 04/29/17 10:59 Prednisone (predniSONE) 60 mg DAILY ORAL 04/01/17 09:00 05/01/17 08:59 04/01/17 09:41 Ranitidine HCl (Zantac) 150 mg TWICE A DAY ORAL 03/30/17 18:00 04/29/17 17:59 04/01/17 17:22 Thyroid ([place] Thyroid) 60 mg ACBREAKFAST ORAL 03/31/17 06:30 04/30/17 06:29 04/01/17 06:04 AAMIR HAMMER Apr 01, 2017 22:56
[2017-04-02] VITALS: BP 99/58
[2017-04-02 04:00] VITALS: BP 137/69
[2017-04-02] MEDS: NovoLOG Insulin Flexpen SUBQ SCH ×4 (06:00→21:00)
[2017-04-02 06:44] LABS: LYMPHOCYTES % (AUTO) 17.8 % (20.0-45.0); MEAN CORPUSCULAR HEMOGLOBIN 28.1 PG (27.0-31.0); MEAN CORPUSCULAR HGB CONC 33.2 G/DL (32.0-36.0); MEAN CORPUSCULAR VOLUME 85 FL (80-99); MEAN PLATELET VOLUME 6.1 FL (6.5-10.1); NEUTROPHILS % (AUTO) 74.2 % (45.0-75.0); PLATELET COUNT 344 K/UL (150-450); RED CELL DISTRIBUTION WIDTH 12.4 % (11.6-14.8)
[2017-04-02] MEDS: Albuterol/Ipratropium 3ml neb HHN SCH ×3 (07:18→23:00)
[2017-04-02 08:00] VITALS: BP 100/53
[2017-04-02] MEDS: Cosopt Opth Soln 10 mL Btl BOTH EYES SCH ×2 (08:36→17:53)
[2017-04-02] MEDS: Docusate 100mg cap ORAL SCH ×2 (08:36→17:28)
[2017-04-02] MEDS: Aspirin Baby 81mg ORAL SCH (08:37)
[2017-04-02] MEDS: guaiFENesin ER 600mg tab ORAL SCH ×2 (08:38→17:28)
[2017-04-02] MEDS: Lactobacillus-GG tablet ORAL SCH (08:38)
[2017-04-02] MEDS: Heparin 5000 units/ml inj SUBQ SCH ×2 (08:40→21:17)
[2017-04-02] MEDS: Lisinopril 2.5mg tab ORAL SCH (09:00)
[2017-04-02] MEDS: dilTIAZem HCl 60mg tab ORAL SCH ×3 (09:00→17:28)
[2017-04-02 09:03] LABS: ANION GAP 9 (5-15); CALCIUM 9.5 MG/DL (8.5-10.1); CARBON DIOXIDE 25 MMOL/L (21-32); CHLORIDE 102 MMOL/L (98-107); CREATININE 0.8 MG/DL (0.55-1.30); SODIUM 136 MMOL/L (136-145)
--- NOTE | 2017-04-02 11:52 | Internal Med Progress Note ---
Subjective Date of Service: Apr 02, 2017 Physician Name Patricia Lazaro Attending Physician Osmin Colon MD Current Medications Medications (Trade) Dose Ordered Sig/Say Route PRN Reason Start Time Stop Time Status Last Admin Dose Admin Acetaminophen (Tylenol) 325 mg Q6H PRN ORAL Mild Pain/Temp > 100.5 03/30/17 10:45 04/29/17 10:44 Al Hydroxide/Mg Hydroxide (Mylanta) 30 ml DAILY ORAL 04/01/17 09:00 05/01/17 08:59 04/02/17 08:36 Al Hydroxide/Mg Hydroxide (Mylanta) 30 ml DAILY PRN ORAL UPSET STOMACH 03/31/17 19:00 04/30/17 18:59 03/31/17 19:01 Albuterol/ Ipratropium (DuoNeb 0.5-3(2.5)mg/3ml) 3 ml Q4H PRN HHN Shortness of Breath 03/30/17 10:30 04/04/17 10:29 Albuterol/ Ipratropium (DuoNeb 0.5-3(2.5)mg/3ml) 3 ml Q8HRT HHN 03/30/17 15:00 04/04/17 14:59 03/31/17 19:32 Aspirin (ASA) 81 mg DAILY ORAL 03/31/17 09:00 04/30/17 08:59 04/02/17 08:37 Bisacodyl (Dulcolax) 5 mg DAILYPRN PRN ORAL Constipation 03/30/17 10:45 04/29/17 10:44 Cetirizine HCl (ZyrTEC) 10 mg DAILY PRN ORAL allergy 03/30/17 11:00 04/29/17 10:59 Dextrose (Dextrose 50%) STAT PRN IV Hypoglycemia 03/30/17 10:45 04/29/17 10:44 Diltiazem HCl (Cardizem) 60 mg TID ORAL 04/01/17 18:00 05/01/17 17:59 Docusate Sodium (Colace) 100 mg TWICE A DAY ORAL 03/30/17 18:00 04/29/17 17:59 04/02/17 08:36 Dorzolamide/ Timolol (Cosopt) 1 drop BID BOTH EYES 03/30/17 18:00 04/29/17 17:59 04/02/17 08:36 Guaifenesin (Mucinex ER) 600 mg TWICE A DAY ORAL 03/30/17 18:00 04/29/17 17:59 04/02/17 08:38 Guaifenesin (Robitussin) 100 mg Q6H PRN ORAL For Cough 03/30/17 11:00 04/29/17 10:59 04/01/17 17:21 Heparin Sodium (Porcine) (Heparin 5000 units/ml) 5,000 units EVERY 12 HOURS SUBQ 03/30/17 21:00 04/29/17 20:59 04/02/17 08:40 Insulin Aspart (NovoLOG) BEFORE MEALS AND HS SUBQ 03/30/17 11:30 04/29/17 11:29 04/01/17 17:34 Lactobacillus Acidophilus (Culturelle) 1 tab DAILY ORAL 03/31/17 09:00 04/30/17 08:59 04/02/17 08:38 Latanoprost (Xalatan) 1 drop BEDTIME BOTH EYES 03/30/17 21:00 04/29/17 20:59 03/31/17 20:36 Lisinopril (Zestril) 2.5 mg DAILY ORAL 03/31/17 09:00 04/30/17 08:59 Lorazepam (Ativan) 0.5 mg Q8H PRN ORAL For Anxiety 03/30/17 11:00 04/06/17 10:59 03/31/17 18:05 Mirtazapine (Remeron) 15 mg BEDTIME ORAL 03/30/17 21:00 04/29/17 20:59 04/01/17 20:55 Polyethylene Glycol (Miralax) 17 gm DAILY PRN ORAL Constipation 03/30/17 11:00 04/29/17 10:59 Prednisone (predniSONE) 60 mg DAILY ORAL 04/01/17 09:00 05/01/17 08:59 04/02/17 08:37 Ranitidine HCl (Zantac) 150 mg TWICE A DAY ORAL 03/30/17 18:00 04/29/17 17:59 04/02/17 08:37 Thyroid ([place] Thyroid) 60 mg ACBREAKFAST ORAL 03/31/17 06:30 04/30/17 06:29 04/02/17 05:51 Allergies: Coded Allergies: MEPERIDINE (Unverified Allergy, Unknown, 04/01/17) MORPHINE (Verified Allergy, Unknown, 08/28/16) PENICILLINS (Verified Allergy, Unknown, 08/28/16) SULFA (SULFONAMIDE ANTIBIOTICS) (Verified Allergy, Unknown, 08/28/16) THIMEROSAL (Unverified Allergy, Unknown, 04/01/17) Uncoded Allergies: Demoral (Allergy, Unknown, 08/28/16) thimersol (Allergy, Unknown, 08/28/16) ROS Limited/Unobtainable: No Constitutional: Reports: no symptoms HEENT: Reports: no symptoms Cardiovascular: Reports: no symptoms Respiratory: Reports: cough, shortness of breath Gastrointestinal/Abdominal: Reports: no symptoms Genitourinary: Reports: no symptoms Neurologic/Psychiatric: Reports: no symptoms Subjective 86 YO F admitted with shortness of breath. Cover for Int Gaudencio-Dr Colon Objective Last Vital Signs Date Time Temp Pulse Resp B/P (MAP) Pulse Ox O2 Delivery O2 Flow Rate FiO2 04/02/17 09:00 66 100/53 04/02/17 08:00 97.5 17 97 Room Air Laboratory Tests Test 04/02/17 05:10 White Blood Count 9.0 K/UL (4.8-10.8) Red Blood Count 4.40 M/UL (4.20-5.40) Hemoglobin 12.4 G/DL (12.0-16.0) Hematocrit 37.3 % (37.0-47.0) Mean Corpuscular Volume 85 FL (80-99) Mean Corpuscular Hemoglobin 28.1 PG (27.0-31.0) Mean Corpuscular Hemoglobin Concent 33.2 G/DL (32.0-36.0) Red Cell Distribution Width 12.4 % (11.6-14.8) Platelet Count 344 K/UL (150-450) Mean Platelet Volume 6.1 FL (6.5-10.1) L Neutrophils (%) (Auto) 74.2 % (45.0-75.0) Lymphocytes (%) (Auto) 17.8 % (20.0-45.0) L Monocytes (%) (Auto) 7.0 % (1.0-10.0) Eosinophils (%) (Auto) 0.0 % (0.0-3.0) Basophils (%) (Auto) 1.0 % (0.0-2.0) Sodium Level 136 MMOL/L (136-145) Potassium Level 4.0 MMOL/L (3.5-5.1) Chloride Level 102 MMOL/L (98-107) Carbon Dioxide Level 25 MMOL/L (21-32) Anion Gap 9 (5-15) Blood Urea Nitrogen 37 mg/dL (7-18) H Creatinine 0.8 MG/DL (0.55-1.30) Estimat Glomerular Filtration Rate mL/min (>60) Glucose Level 87 MG/DL (74-106) Calcium Level 9.5 MG/DL (8.5-10.1) Intake and Output 04/02/17 04/03/17 19:00 07:00 Intake Total 180 ml Balance 180 ml Intake Oral 180 ml Objective General Appearance: alert, thin EENT: PERRL/EOMI, normal ENT inspection, TMs normal Neck: non-tender, normal alignment, supple, normal inspection Cardiovascular: normal peripheral pulses, normal rate, regular rhythm, no gallop/murmur, no JVD Respiratory/Chest: respiratory distress, crackles/rales, rhonchi - bilaterally , expiratory wheezing Abdomen: normal bowel sounds, non tender, soft, no organomegaly, no mass Extremities: normal range of motion, non-tender 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 (10) Depression Assessment & Plan: see psych note. (11) Cerebral aneurysm Status: progressing [email or web address] Apr 02, 2017 11:52
--- NOTE | 2017-04-02 14:14 | General Progress Note ---
Assessment/Plan Status: stable, progressing Assessment/Plan cont current meds' cognitive impairment Subjective Neurologic/Psychiatric: Reports: anxiety, depressed Allergies: Coded Allergies: MEPERIDINE (Unverified Allergy, Unknown, 04/01/17) MORPHINE (Verified Allergy, Unknown, 08/28/16) PENICILLINS (Verified Allergy, Unknown, 08/28/16) SULFA (SULFONAMIDE ANTIBIOTICS) (Verified Allergy, Unknown, 08/28/16) THIMEROSAL (Unverified Allergy, Unknown, 04/01/17) Uncoded Allergies: Demoral (Allergy, Unknown, 08/28/16) thimersol (Allergy, Unknown, 08/28/16) Subjective the pt is sleeping more than necessary during the day. appetite is good. Objective Last 24 Hour Vital Signs Date Time Temp Pulse Resp B/P (MAP) Pulse Ox O2 Delivery O2 Flow Rate FiO2 04/02/17 09:00 66 100/53 04/02/17 09:00 100/53 04/02/17 08:00 97.5 66 17 100/53 97 Room Air 04/02/17 07:18 Room Air 04/02/17 07:18 78 12 98 Room Air 04/02/17 07:18 78 16 Room Air 04/02/17 04:00 97.1 66 18 137/69 99 Room Air 04/02/17 00:00 96.9 68 18 99/58 99 Room Air 04/01/17 22:12 Room Air 04/01/17 22:11 Room Air 04/01/17 20:00 97.0 72 18 105/62 100 Room Air 04/01/17 19:00 72 16 Room Air 04/01/17 17:17 67 105/56 04/01/17 15:48 98.0 67 20 105/56 98 Room Air 04/01/17 15:15 76 16 98 Room Air 04/01/17 15:15 Room Air Intake and Output 04/02/17 04/03/17 19:00 07:00 Intake Total 180 ml Balance 180 ml Intake Oral 180 ml Laboratory Tests 04/02/17 05:10: White Blood Count 9.0, Red Blood Count 4.40, Hemoglobin 12.4, Hematocrit 37.3, Mean Corpuscular Volume 85, Mean Corpuscular Hemoglobin 28.1, Mean Corpuscular Hemoglobin Concent 33.2, Red Cell Distribution Width 12.4, Platelet Count 344, Mean Platelet Volume 6.1L, Neutrophils (%) (Auto) 74.2, Lymphocytes (%) (Auto) 17.8L, Monocytes (%) (Auto) 7.0, Eosinophils (%) (Auto) 0.0, Basophils (%) (Auto ) 1.0, Sodium Level 136, Potassium Level 4.0, Chloride Level 102, Carbon Dioxide Level 25, Anion Gap 9, Blood Urea Nitrogen 37H, Creatinine 0.8, Estimat Glomerular Filtration Rate , Glucose Level 87, Calcium Level 9.5 Height (Feet): 5 Height (Inches): 7.00 Weight (Pounds): 120 General Appearance: no apparent distress, overweight Neurologic: alert, responsive, depressed affect Chauncey Giordano M.D. Apr 02, 2017 14:14
[2017-04-02 16:00] VITALS: BP 125/75
[2017-04-02 20:00] VITALS: BP 99/63
[2017-04-02] MEDS: Latanoprost 0.005% Opth 2.5ml Soln BOTH EYES SCH (21:16)
--- NOTE | 2017-04-02 22:45 | Pulmonology Progress Note ---
Assessment/Plan Assessment/Plan Acute dyspnea-improving Acute COPD excacerbation Hx Lung Cancer Hx COPD HTN Hypothyroidism Anxiety disorder Depression Dyslipidemia Plan Supplemental oxygen titrate fio2 up maintain o2 sat above 92% Aspiration precautions Labs examined Breathing treatments as needed for SOB Systemic corticosteroids Pulmonary hygiene DC planning from pulmonary point of view Subjective ROS Limited/Unobtainable: No Constitutional: Reports: anorexia Respiratory: Reports: shortness of breath, wheezing Allergies: Coded Allergies: MEPERIDINE (Unverified Allergy, Unknown, 04/01/17) MORPHINE (Verified Allergy, Unknown, 08/28/16) PENICILLINS (Verified Allergy, Unknown, 08/28/16) SULFA (SULFONAMIDE ANTIBIOTICS) (Verified Allergy, Unknown, 08/28/16) THIMEROSAL (Unverified Allergy, Unknown, 04/01/17) Uncoded Allergies: Demoral (Allergy, Unknown, 08/28/16) thimersol (Allergy, Unknown, 08/28/16) Objective Last 24 Hour Vital Signs Date Time Temp Pulse Resp B/P (MAP) Pulse Ox O2 Delivery O2 Flow Rate FiO2 04/02/17 20:00 97.3 57 18 99/63 99 Room Air 04/02/17 19:45 74 16 Room Air 04/02/17 17:28 63 125/75 04/02/17 16:00 97.9 63 18 125/75 100 Room Air 04/02/17 15:30 Room Air 04/02/17 15:30 Room Air 04/02/17 13:00 66 100/53 04/02/17 09:00 66 100/53 04/02/17 09:00 100/53 04/02/17 08:00 97.5 66 17 100/53 97 Room Air 04/02/17 07:18 Room Air 04/02/17 07:18 78 12 98 Room Air 04/02/17 07:18 78 16 Room Air 04/02/17 04:00 97.1 66 18 137/69 99 Room Air 04/02/17 00:00 96.9 68 18 99/58 99 Room Air Intake and Output 04/02/17 04/03/17 19:00 07:00 Intake Total 420 ml Balance 420 ml Intake Oral 420 ml # Voids 1 General Appearance: no acute distress HEENT: normocephalic, atraumatic, PERRL Respiratory/Chest: chest wall non-tender, decreased breath sounds, accessory muscle use, expiratory wheezing, inspiratory wheezing Breasts: no masses Cardiovascular: normal peripheral pulses, normal rate, regular rhythm, no JVD Abdomen: normal bowel sounds, soft, non tender, no organomegaly, non distended Genitourinary: normal external genitalia Extremities: no cyanosis Skin: no rash, no lesions 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8, Estimat Glomerular Filtration Rate , Glucose Level 87, Calcium Level 9.5 Current Medications Medications (Trade) Dose Ordered Sig/Say Route PRN Reason Start Time Stop Time Status Last Admin Dose Admin Acetaminophen (Tylenol) 325 mg Q6H PRN ORAL Mild Pain/Temp > 100.5 03/30/17 10:45 04/29/17 10:44 Al Hydroxide/Mg Hydroxide (Mylanta) 30 ml DAILY ORAL 04/01/17 09:00 05/01/17 08:59 04/02/17 08:36 Al Hydroxide/Mg Hydroxide (Mylanta) 30 ml DAILY PRN ORAL UPSET STOMACH 03/31/17 19:00 04/30/17 18:59 03/31/17 19:01 Albuterol/ Ipratropium (DuoNeb 0.5-3(2.5)mg/3ml) 3 ml Q4H PRN HHN Shortness of Breath 03/30/17 10:30 04/04/17 10:29 Albuterol/ Ipratropium (DuoNeb 0.5-3(2.5)mg/3ml) 3 ml Q8HRT HHN 03/30/17 15:00 04/04/17 14:59 03/31/17 19:32 Aspirin (ASA) 81 mg DAILY ORAL 03/31/17 09:00 04/30/17 08:59 04/02/17 08:37 Bisacodyl (Dulcolax) 5 mg DAILYPRN PRN ORAL Constipation 03/30/17 10:45 04/29/17 10:44 Cetirizine HCl (ZyrTEC) 10 mg DAILY PRN ORAL allergy 03/30/17 11:00 04/29/17 10:59 Dextrose (Dextrose 50%) STAT PRN IV Hypoglycemia 03/30/17 10:45 04/29/17 10:44 Diltiazem HCl (Cardizem) 60 mg TID ORAL 04/01/17 18:00 05/01/17 17:59 04/02/17 17:28 Docusate Sodium (Colace) 100 mg TWICE A DAY ORAL 03/30/17 18:00 04/29/17 17:59 04/02/17 17:28 Dorzolamide/ Timolol (Cosopt) 1 drop BID BOTH EYES 03/30/17 18:00 04/29/17 17:59 04/02/17 17:53 Guaifenesin (Mucinex ER) 600 mg TWICE A DAY ORAL 03/30/17 18:00 04/29/17 17:59 04/02/17 17:28 Guaifenesin (Robitussin) 100 mg Q6H PRN ORAL For Cough 03/30/17 11:00 04/29/17 10:59 04/01/17 17:21 Heparin Sodium (Porcine) (Heparin 5000 units/ml) 5,000 units EVERY 12 HOURS SUBQ 03/30/17 21:00 04/29/17 20:59 04/02/17 21:17 Insulin Aspart (NovoLOG) BEFORE MEALS AND HS SUBQ 03/30/17 11:30 04/29/17 11:29 04/02/17 17:31 Lactobacillus Acidophilus (Culturelle) 1 tab DAILY ORAL 03/31/17 09:00 04/30/17 08:59 04/02/17 08:38 Latanoprost (Xalatan) 1 drop BEDTIME BOTH EYES 03/30/17 21:00 04/29/17 20:59 04/02/17 21:16 Lisinopril (Zestril) 2.5 mg DAILY ORAL 03/31/17 09:00 04/30/17 08:59 Lorazepam (Ativan) 0.5 mg Q8H PRN ORAL For Anxiety 03/30/17 11:00 04/06/17 10:59 03/31/17 18:05 Mirtazapine (Remeron) 15 mg BEDTIME ORAL 03/30/17 21:00 04/29/17 20:59 04/02/17 21:18 Polyethylene Glycol (Miralax) 17 gm DAILY PRN ORAL Constipation 03/30/17 11:00 04/29/17 10:59 Prednisone (predniSONE) 60 mg DAILY ORAL 04/01/17 09:00 05/01/17 08:59 04/02/17 08:37 Ranitidine HCl (Zantac) 150 mg TWICE A DAY ORAL 03/30/17 18:00 04/29/17 17:59 04/02/17 17:27 Thyroid ([place] Thyroid) 60 mg ACBREAKFAST ORAL 03/31/17 06:30 04/30/17 06:29 04/02/17 05:51 AAMIR HAMMER Apr 02, 2017 22:45
[2017-04-03] VITALS: BP 111/65
[2017-04-03 04:00] VITALS: BP 120/69
[2017-04-03] MEDS: NovoLOG Insulin Flexpen SUBQ SCH ×4 (06:03→21:00)
[2017-04-03 07:12] LABS: EOSINOPHILS % (AUTO) 0.5 % (0.0-3.0); LYMPHOCYTES % (AUTO) 36.3 % (20.0-45.0); MEAN CORPUSCULAR HGB CONC 34.3 G/DL (32.0-36.0); MEAN CORPUSCULAR VOLUME 85 FL (80-99); MEAN PLATELET VOLUME 5.9 FL (6.5-10.1); NEUTROPHILS % (AUTO) 51.2 % (45.0-75.0); PLATELET COUNT 319 K/UL (150-450); RED BLOOD COUNT 4.19 M/UL (4.20-5.40); WHITE BLOOD COUNT 7.7 K/UL (4.8-10.8)
[2017-04-03 07:23] LABS: ANION GAP 7 (5-15); CALCIUM 9.4 MG/DL (8.5-10.1); CARBON DIOXIDE 26 MMOL/L (21-32); CHLORIDE 108 MMOL/L (98-107); CREATININE 0.8 MG/DL (0.55-1.30); POTASSIUM 3.9 MMOL/L (3.5-5.1); SODIUM 141 MMOL/L (136-145)
[2017-04-03] MEDS: Albuterol/Ipratropium 3ml neb HHN SCH ×3 (07:44→23:00)
[2017-04-03 08:00] VITALS: BP 140/80
[2017-04-03] MEDS: Heparin 5000 units/ml inj SUBQ SCH ×3 (09:00→22:29)
[2017-04-03] MEDS: dilTIAZem HCl 60mg tab ORAL SCH ×3 (09:00→17:42)
[2017-04-03] MEDS: Docusate 100mg cap ORAL SCH ×2 (09:30→17:42)
[2017-04-03] MEDS: Lisinopril 2.5mg tab ORAL SCH (09:30)
[2017-04-03] MEDS: guaiFENesin ER 600mg tab ORAL SCH ×2 (09:30→17:42)
[2017-04-03] MEDS: Lactobacillus-GG tablet ORAL SCH (09:30)
[2017-04-03] MEDS: Aspirin Baby 81mg ORAL SCH (09:31)
[2017-04-03] MEDS: Cosopt Opth Soln 10 mL Btl BOTH EYES SCH ×2 (09:31→17:42)
[2017-04-03 11:27] VITALS: BP 140/78
[2017-04-03 15:55] VITALS: BP 132/75
--- NOTE | 2017-04-03 17:44 | General Progress Note ---
Assessment/Plan Status: stable, progressing Assessment/Plan cont current meds' cognitive impairment Subjective Constitutional: Reports: malaise, weakness Neurologic/Psychiatric: Reports: depressed, emotional problems Allergies: Coded Allergies: MEPERIDINE (Unverified Allergy, Unknown, 04/01/17) MORPHINE (Verified Allergy, Unknown, 08/28/16) PENICILLINS (Verified Allergy, Unknown, 08/28/16) SULFA (SULFONAMIDE ANTIBIOTICS) (Verified Allergy, Unknown, 08/28/16) THIMEROSAL (Unverified Allergy, Unknown, 04/01/17) Uncoded Allergies: Demoral (Allergy, Unknown, 08/28/16) thimersol (Allergy, Unknown, 08/28/16) Subjective the pt is sleeping more than necessary during the day. appetite is good. Objective Last 24 Hour Vital Signs Date Time Temp Pulse Resp B/P (MAP) Pulse Ox O2 Delivery O2 Flow Rate FiO2 04/03/17 15:55 98.4 65 20 132/75 98 Room Air 04/03/17 15:29 Room Air 04/03/17 15:29 Room Air 04/03/17 14:15 60 140/78 04/03/17 11:27 97.2 60 18 140/78 97 Room Air 04/03/17 09:30 140/80 04/03/17 09:00 58 140/80 04/03/17 08:00 96.6 58 17 140/80 99 Room Air 04/03/17 07:50 53 16 Room Air 04/03/17 07:50 Room Air 04/03/17 07:50 Room Air 04/03/17 04:00 97.0 55 18 120/69 98 Room Air 04/03/17 00:00 97.5 68 18 111/65 100 Room Air 04/02/17 23:00 Room Air 04/02/17 23:00 72 12 98 Room Air 04/02/17 20:00 97.3 57 18 99/63 99 Room Air 04/02/17 19:45 74 16 Room Air Intake and Output 04/03/17 04/04/17 19:00 07:00 Intake Total 360 ml Balance 360 ml Intake Oral 360 ml # Voids 2 Laboratory Tests 04/03/17 05:40: White Blood Count 7.7, Red Blood Count 4.19L, Hemoglobin 12.2, Hematocrit 35.5L , Mean Corpuscular Volume 85, Mean Corpuscular Hemoglobin 29.0, Mean Corpuscular Hemoglobin Concent 34.3, Red Cell Distribution Width 13.0, Platelet Count 319, Mean Platelet Volume 5.9L, Neutrophils (%) (Auto) 51.2, Lymphocytes ( %) (Auto) 36.3, Monocytes (%) (Auto) 11.0H, Eosinophils (%) (Auto) 0.5, Basophils (%) (Auto) 1.0, Sodium Level 141, Potassium Level 3.9, Chloride Level 108H, Carbon Dioxide Level 26, Anion Gap 7, Blood Urea Nitrogen 33H, Creatinine 0.8, Estimat Glomerular Filtration Rate , Glucose Level 74, Calcium Level 9.4 Height (Feet): 5 Height (Inches): 7.00 Weight (Pounds): 120 General Appearance: no apparent distress, alert, thin, overweight Neurologic: alert, oriented x 3, responsive, depressed affect Chauncey Giordano M.D. Apr 03, 2017 17:44
--- NOTE | 2017-04-03 17:53 | Internal Med Progress Note ---
Subjective Date of Service: Apr 03, 2017 Physician Name Patricia Early Attending Physician Osmin Colon MD Current Medications Medications (Trade) Dose Ordered Sig/Say Route PRN Reason Start Time Stop Time Status Last Admin Dose Admin Acetaminophen (Tylenol) 325 mg Q6H PRN ORAL Mild Pain/Temp > 100.5 03/30/17 10:45 04/29/17 10:44 Al Hydroxide/Mg Hydroxide (Mylanta) 30 ml DAILY ORAL 04/01/17 09:00 05/01/17 08:59 04/03/17 09:29 Al Hydroxide/Mg Hydroxide (Mylanta) 30 ml DAILY PRN ORAL UPSET STOMACH 03/31/17 19:00 04/30/17 18:59 03/31/17 19:01 Albuterol/ Ipratropium (DuoNeb 0.5-3(2.5)mg/3ml) 3 ml Q4H PRN HHN Shortness of Breath 03/30/17 10:30 04/04/17 10:29 Albuterol/ Ipratropium (DuoNeb 0.5-3(2.5)mg/3ml) 3 ml Q8HRT HHN 03/30/17 15:00 04/04/17 14:59 03/31/17 19:32 Aspirin (ASA) 81 mg DAILY ORAL 03/31/17 09:00 04/30/17 08:59 04/03/17 09:31 Bisacodyl (Dulcolax) 5 mg DAILYPRN PRN ORAL Constipation 03/30/17 10:45 04/29/17 10:44 Cetirizine HCl (ZyrTEC) 10 mg DAILY PRN ORAL allergy 03/30/17 11:00 04/29/17 10:59 Dextrose (Dextrose 50%) STAT PRN IV Hypoglycemia 03/30/17 10:45 04/29/17 10:44 Diltiazem HCl (Cardizem) 60 mg TID ORAL 04/01/17 18:00 05/01/17 17:59 04/03/17 17:42 Docusate Sodium (Colace) 100 mg TWICE A DAY ORAL 03/30/17 18:00 04/29/17 17:59 04/03/17 17:42 Dorzolamide/ Timolol (Cosopt) 1 drop BID BOTH EYES 03/30/17 18:00 04/29/17 17:59 04/03/17 17:42 Guaifenesin (Mucinex ER) 600 mg TWICE A DAY ORAL 03/30/17 18:00 04/29/17 17:59 04/03/17 17:42 Guaifenesin (Robitussin) 100 mg Q6H PRN ORAL For Cough 03/30/17 11:00 04/29/17 10:59 04/01/17 17:21 Heparin Sodium (Porcine) (Heparin 5000 units/ml) 5,000 units EVERY 12 HOURS SUBQ 03/30/17 21:00 04/29/17 20:59 04/02/17 21:17 Insulin Aspart (NovoLOG) BEFORE MEALS AND HS SUBQ 03/30/17 11:30 04/29/17 11:29 04/03/17 16:33 Lactobacillus Acidophilus (Culturelle) 1 tab DAILY ORAL 03/31/17 09:00 04/30/17 08:59 04/03/17 09:30 Latanoprost (Xalatan) 1 drop BEDTIME BOTH EYES 03/30/17 21:00 04/29/17 20:59 04/02/17 21:16 Lisinopril (Zestril) 2.5 mg DAILY ORAL 03/31/17 09:00 04/30/17 08:59 04/03/17 09:30 Lorazepam (Ativan) 0.5 mg Q8H PRN ORAL For Anxiety 03/30/17 11:00 04/06/17 10:59 03/31/17 18:05 Mirtazapine (Remeron) 15 mg BEDTIME ORAL 03/30/17 21:00 04/29/17 20:59 04/02/17 21:18 Polyethylene Glycol (Miralax) 17 gm DAILY PRN ORAL Constipation 03/30/17 11:00 04/29/17 10:59 Prednisone (predniSONE) 60 mg DAILY ORAL 04/01/17 09:00 05/01/17 08:59 04/03/17 09:30 Ranitidine HCl (Zantac) 150 mg TWICE A DAY ORAL 03/30/17 18:00 04/29/17 17:59 04/03/17 17:42 Thyroid ([place] Thyroid) 60 mg ACBREAKFAST ORAL 03/31/17 06:30 04/30/17 06:29 04/03/17 06:00 Allergies: Coded Allergies: MEPERIDINE (Unverified Allergy, Unknown, 04/01/17) MORPHINE (Verified Allergy, Unknown, 08/28/16) PENICILLINS (Verified Allergy, Unknown, 08/28/16) SULFA (SULFONAMIDE ANTIBIOTICS) (Verified Allergy, Unknown, 08/28/16) THIMEROSAL (Unverified Allergy, Unknown, 04/01/17) Uncoded Allergies: Demoral (Allergy, Unknown, 08/28/16) thimersol (Allergy, Unknown, 08/28/16) ROS Limited/Unobtainable: No Constitutional: Reports: no symptoms HEENT: Reports: no symptoms Cardiovascular: Reports: no symptoms Respiratory: Reports: no symptoms Gastrointestinal/Abdominal: Reports: no symptoms Genitourinary: Reports: no symptoms Neurologic/Psychiatric: Reports: no symptoms Subjective 86 YO F admitted with shortness of breath. Cover for Int Gaudencio-Dr Colon Objective Last Vital Signs Date Time Temp Pulse Resp B/P (MAP) Pulse Ox O2 Delivery O2 Flow Rate FiO2 04/03/17 17:42 65 132/75 04/03/17 15:55 98.4 20 98 Room Air Laboratory Tests Test 04/03/17 05:40 White Blood Count 7.7 K/UL (4.8-10.8) Red Blood Count 4.19 M/UL (4.20-5.40) L Hemoglobin 12.2 G/DL (12.0-16.0) Hematocrit 35.5 % (37.0-47.0) L Mean Corpuscular Volume 85 FL (80-99) Mean Corpuscular Hemoglobin 29.0 PG (27.0-31.0) Mean Corpuscular Hemoglobin Concent 34.3 G/DL (32.0-36.0) Red Cell Distribution Width 13.0 % (11.6-14.8) Platelet Count 319 K/UL (150-450) Mean Platelet Volume 5.9 FL (6.5-10.1) L Neutrophils (%) (Auto) 51.2 % (45.0-75.0) Lymphocytes (%) (Auto) 36.3 % (20.0-45.0) Monocytes (%) (Auto) 11.0 % (1.0-10.0) H Eosinophils (%) (Auto) 0.5 % (0.0-3.0) Basophils (%) (Auto) 1.0 % (0.0-2.0) Sodium Level 141 MMOL/L (136-145) Potassium Level 3.9 MMOL/L (3.5-5.1) Chloride Level 108 MMOL/L (98-107) H Carbon Dioxide Level 26 MMOL/L (21-32) Anion Gap 7 (5-15) Blood Urea Nitrogen 33 mg/dL (7-18) H Creatinine 0.8 MG/DL (0.55-1.30) Estimat Glomerular Filtration Rate mL/min (>60) Glucose Level 74 MG/DL (74-106) Calcium Level 9.4 MG/DL (8.5-10.1) Intake and Output 04/03/17 04/04/17 19:00 07:00 Intake Total 360 ml Balance 360 ml Intake Oral 360 ml # Voids 2 Objective General Appearance: alert, thin EENT: PERRL/EOMI, normal ENT inspection, TMs normal Neck: non-tender, normal alignment, supple, normal inspection Cardiovascular: normal peripheral pulses, normal rate, regular rhythm, no gallop/murmur, no JVD Respiratory/Chest: respiratory distress, crackles/rales, rhonchi - bilaterally , expiratory wheezing Abdomen: normal bowel sounds, non tender, soft, no organomegaly, no mass Extremities: normal range of motion, non-tender 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 (10) Depression Assessment & Plan: see psych note. (11) Cerebral aneurysm Status: stable Assessment/Plan Discharge planning: [facility]. PATRICIA EARLY Apr 03, 2017 17:53
[2017-04-03 20:00] VITALS: BP 96/65
[2017-04-03] MEDS: Latanoprost 0.005% Opth 2.5ml Soln BOTH EYES SCH (22:26)
[2017-04-04] VITALS: BP 113/71
[2017-04-04 04:00] VITALS: BP 102/60
[2017-04-04] MEDS: NovoLOG Insulin Flexpen SUBQ SCH ×2 (06:26→11:30)
[2017-04-04 07:16] LABS: BASOPHILS % (AUTO) 0.7 % (0.0-2.0); EOSINOPHILS % (AUTO) 0.3 % (0.0-3.0); LYMPHOCYTES % (AUTO) 16.2 % (20.0-45.0); MEAN CORPUSCULAR HEMOGLOBIN 28.8 PG (27.0-31.0); MEAN CORPUSCULAR HGB CONC 33.8 G/DL (32.0-36.0); MEAN CORPUSCULAR VOLUME 85 FL (80-99); MEAN PLATELET VOLUME 6.1 FL (6.5-10.1); MONOCYTES % (AUTO) 8.6 % (1.0-10.0); NEUTROPHILS % (AUTO) 74.2 % (45.0-75.0); PLATELET COUNT 318 K/UL (150-450); RED BLOOD COUNT 4.19 M/UL (4.20-5.40); RED CELL DISTRIBUTION WIDTH 12.8 % (11.6-14.8); WHITE BLOOD COUNT 8.6 K/UL (4.8-10.8)
[2017-04-04] MEDS: Albuterol/Ipratropium 3ml neb HHN SCH (07:45)
[2017-04-04 07:50] LABS: ANION GAP 7 (5-15); CALCIUM 9.1 MG/DL (8.5-10.1); CARBON DIOXIDE 26 MMOL/L (21-32); CHLORIDE 104 MMOL/L (98-107); CREATININE 0.9 MG/DL (0.55-1.30); POTASSIUM 3.8 MMOL/L (3.5-5.1); SODIUM 137 MMOL/L (136-145)
[2017-04-04 08:00] VITALS: BP 99/75
[2017-04-04] MEDS: Lisinopril 2.5mg tab ORAL SCH (09:00)
[2017-04-04] MEDS: dilTIAZem HCl 60mg tab ORAL SCH ×2 (09:00→13:00)
[2017-04-04] MEDS: Aspirin Baby 81mg ORAL SCH (09:13)
[2017-04-04] MEDS: Lactobacillus-GG tablet ORAL SCH (09:14)
[2017-04-04] MEDS: guaiFENesin ER 600mg tab ORAL SCH (09:14)
[2017-04-04] MEDS: Docusate 100mg cap ORAL SCH (09:14)
[2017-04-04] MEDS: Heparin 5000 units/ml inj SUBQ SCH (09:21)
[2017-04-04] MEDS: Cosopt Opth Soln 10 mL Btl BOTH EYES SCH (09:28)
--- NOTE | 2017-04-04 12:04 | General Progress Note ---
Assessment/Plan Status: stable, progressing Assessment/Plan cont current meds' cognitive impairment Subjective Neurologic/Psychiatric: Reports: depressed, emotional problems Allergies: Coded Allergies: MEPERIDINE (Unverified Allergy, Unknown, 04/01/17) MORPHINE (Verified Allergy, Unknown, 08/28/16) PENICILLINS (Verified Allergy, Unknown, 08/28/16) SULFA (SULFONAMIDE ANTIBIOTICS) (Verified Allergy, Unknown, 08/28/16) THIMEROSAL (Unverified Allergy, Unknown, 04/01/17) Uncoded Allergies: Demoral (Allergy, Unknown, 08/28/16) thimersol (Allergy, Unknown, 08/28/16) Subjective the pt is doing still sleeps alot. appetite is good. Objective Last 24 Hour Vital Signs Date Time Temp Pulse Resp B/P (MAP) Pulse Ox O2 Delivery O2 Flow Rate FiO2 04/04/17 09:00 70 102/58 04/04/17 09:00 102/58 04/04/17 08:00 97.3 72 20 99/75 99 Room Air 04/04/17 07:51 Room Air 04/04/17 07:46 73 16 Room Air 04/04/17 07:46 73 12 95 Room Air 04/04/17 04:00 97.0 65 20 102/60 92 Room Air 04/04/17 00:00 96.9 70 20 113/71 96 Room Air 04/03/17 23:00 Room Air 04/03/17 23:00 Room Air 04/03/17 20:00 96.8 63 20 96/65 98 Room Air 04/03/17 19:00 57 16 Room Air 04/03/17 17:42 65 132/75 04/03/17 15:55 98.4 65 20 132/75 98 Room Air 04/03/17 15:29 Room Air 04/03/17 15:29 Room Air 04/03/17 14:15 60 140/78 Laboratory Tests 04/04/17 05:10: White Blood Count 8.6, Red Blood Count 4.19L, Hemoglobin 12.1, Hematocrit 35.7L , Mean Corpuscular Volume 85, Mean Corpuscular Hemoglobin 28.8, Mean Corpuscular Hemoglobin Concent 33.8, Red Cell Distribution Width 12.8, Platelet Count 318, Mean Platelet Volume 6.1L, Neutrophils (%) (Auto) 74.2, Lymphocytes ( %) (Auto) 16.2L, Monocytes (%) (Auto) 8.6, Eosinophils (%) (Auto) 0.3, Basophils (%) (Auto) 0.7, Sodium Level 137, Potassium Level 3.8, Chloride Level 104, Carbon Dioxide Level 26, Anion Gap 7, Blood Urea Nitrogen 29H, Creatinine 0.9, Estimat Glomerular Filtration Rate , Glucose Level 114H, Calcium Level 9.1 Height (Feet): 5 Height (Inches): 7.00 Weight (Pounds): 120 General Appearance: no apparent distress, alert Neurologic: alert, oriented x 3, responsive, depressed affect Chauncey Giordano M.D. Apr 04, 2017 12:04
[2017-04-04 12:25] VITALS: BP 115/65
--- NOTE | 2017-04-04 12:51 | Internal Med Progress Note ---
Subjective Date of Service: Apr 04, 2017 Physician Name EarlyPatricia Attending Physician Osmin Colon MD Current Medications Medications (Trade) Dose Ordered Sig/Say Route PRN Reason Start Time Stop Time Status Last Admin Dose Admin Acetaminophen (Tylenol) 325 mg Q6H PRN ORAL Mild Pain/Temp > 100.5 03/30/17 10:45 04/29/17 10:44 Al Hydroxide/Mg Hydroxide (Mylanta) 30 ml DAILY ORAL 04/01/17 09:00 05/01/17 08:59 04/04/17 09:14 Al Hydroxide/Mg Hydroxide (Mylanta) 30 ml DAILY PRN ORAL UPSET STOMACH 03/31/17 19:00 04/30/17 18:59 03/31/17 19:01 Albuterol/ Ipratropium (DuoNeb 0.5-3(2.5)mg/3ml) 3 ml Q8HRT HHN 03/30/17 15:00 04/04/17 14:59 04/04/17 07:45 Aspirin (ASA) 81 mg DAILY ORAL 03/31/17 09:00 04/30/17 08:59 04/04/17 09:13 Bisacodyl (Dulcolax) 5 mg DAILYPRN PRN ORAL Constipation 03/30/17 10:45 04/29/17 10:44 Cetirizine HCl (ZyrTEC) 10 mg DAILY PRN ORAL allergy 03/30/17 11:00 04/29/17 10:59 Dextrose (Dextrose 50%) STAT PRN IV Hypoglycemia 03/30/17 10:45 04/29/17 10:44 Diltiazem HCl (Cardizem) 60 mg TID ORAL 04/01/17 18:00 05/01/17 17:59 04/03/17 17:42 Docusate Sodium (Colace) 100 mg TWICE A DAY ORAL 03/30/17 18:00 04/29/17 17:59 04/04/17 09:14 Dorzolamide/ Timolol (Cosopt) 1 drop BID BOTH EYES 03/30/17 18:00 04/29/17 17:59 04/04/17 09:28 Guaifenesin (Mucinex ER) 600 mg TWICE A DAY ORAL 03/30/17 18:00 04/29/17 17:59 04/04/17 09:14 Guaifenesin (Robitussin) 100 mg Q6H PRN ORAL For Cough 03/30/17 11:00 04/29/17 10:59 04/01/17 17:21 Heparin Sodium (Porcine) (Heparin 5000 units/ml) 5,000 units EVERY 12 HOURS SUBQ 03/30/17 21:00 04/29/17 20:59 04/04/17 09:21 Insulin Aspart (NovoLOG) BEFORE MEALS AND HS SUBQ 03/30/17 11:30 04/29/17 11:29 04/03/17 16:33 Lactobacillus Acidophilus (Culturelle) 1 tab DAILY ORAL 03/31/17 09:00 04/30/17 08:59 04/04/17 09:14 Latanoprost (Xalatan) 1 drop BEDTIME BOTH EYES 03/30/17 21:00 04/29/17 20:59 04/03/17 22:26 Lisinopril (Zestril) 2.5 mg DAILY ORAL 03/31/17 09:00 04/30/17 08:59 04/03/17 09:30 Lorazepam (Ativan) 0.5 mg Q8H PRN ORAL For Anxiety 03/30/17 11:00 04/06/17 10:59 03/31/17 18:05 Mirtazapine (Remeron) 15 mg BEDTIME ORAL 03/30/17 21:00 04/29/17 20:59 04/03/17 22:36 Polyethylene Glycol (Miralax) 17 gm DAILY PRN ORAL Constipation 03/30/17 11:00 04/29/17 10:59 Prednisone (predniSONE) 60 mg DAILY ORAL 04/01/17 09:00 05/01/17 08:59 04/04/17 09:26 Ranitidine HCl (Zantac) 150 mg TWICE A DAY ORAL 03/30/17 18:00 04/29/17 17:59 04/04/17 09:26 Thyroid ([place] Thyroid) 60 mg ACBREAKFAST ORAL 03/31/17 06:30 04/30/17 06:29 04/04/17 06:01 Allergies: Coded Allergies: MEPERIDINE (Unverified Allergy, Unknown, 04/01/17) MORPHINE (Verified Allergy, Unknown, 08/28/16) PENICILLINS (Verified Allergy, Unknown, 08/28/16) SULFA (SULFONAMIDE ANTIBIOTICS) (Verified Allergy, Unknown, 08/28/16) THIMEROSAL (Unverified Allergy, Unknown, 04/01/17) Uncoded Allergies: Demoral (Allergy, Unknown, 08/28/16) thimersol (Allergy, Unknown, 08/28/16) ROS Limited/Unobtainable: No Constitutional: Reports: no symptoms HEENT: Reports: no symptoms Cardiovascular: Reports: no symptoms Respiratory: Reports: no symptoms Gastrointestinal/Abdominal: Reports: no symptoms Genitourinary: Reports: no symptoms Neurologic/Psychiatric: Reports: no symptoms Subjective 86 YO F admitted with shortness of breath. Cover for Int Gaudencio-Dr Colon Objective Last Vital Signs Date Time Temp Pulse Resp B/P (MAP) Pulse Ox O2 Delivery O2 Flow Rate FiO2 04/04/17 12:25 96.1 65 22 115/65 99 Room Air Laboratory Tests Test 04/04/17 05:10 White Blood Count 8.6 K/UL (4.8-10.8) Red Blood Count 4.19 M/UL (4.20-5.40) L Hemoglobin 12.1 G/DL (12.0-16.0) Hematocrit 35.7 % (37.0-47.0) L Mean Corpuscular Volume 85 FL (80-99) Mean Corpuscular Hemoglobin 28.8 PG (27.0-31.0) Mean Corpuscular Hemoglobin Concent 33.8 G/DL (32.0-36.0) Red Cell Distribution Width 12.8 % (11.6-14.8) Platelet Count 318 K/UL (150-450) Mean Platelet Volume 6.1 FL (6.5-10.1) L Neutrophils (%) (Auto) 74.2 % (45.0-75.0) Lymphocytes (%) (Auto) 16.2 % (20.0-45.0) L Monocytes (%) (Auto) 8.6 % (1.0-10.0) Eosinophils (%) (Auto) 0.3 % (0.0-3.0) Basophils (%) (Auto) 0.7 % (0.0-2.0) Sodium Level 137 MMOL/L (136-145) Potassium Level 3.8 MMOL/L (3.5-5.1) Chloride Level 104 MMOL/L (98-107) Carbon Dioxide Level 26 MMOL/L (21-32) Anion Gap 7 (5-15) Blood Urea Nitrogen 29 mg/dL (7-18) H Creatinine 0.9 MG/DL (0.55-1.30) Estimat Glomerular Filtration Rate mL/min (>60) Glucose Level 114 MG/DL (74-106) H Calcium Level 9.1 MG/DL (8.5-10.1) Objective General Appearance: alert, thin EENT: PERRL/EOMI, normal ENT inspection, TMs normal Neck: non-tender, normal alignment, supple, normal inspection Cardiovascular: normal peripheral pulses, normal rate, regular rhythm, no gallop/murmur, no JVD Respiratory/Chest: respiratory distress, crackles/rales, rhonchi - bilaterally , expiratory wheezing Abdomen: normal bowel sounds, non tender, soft, no organomegaly, no mass Extremities: normal range of motion, non-tender 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 (10) Depression Assessment & Plan: see psych note. (11) Cerebral aneurysm Status: stable Assessment/Plan Discharge planning: [facility]hab of [facility] nursing fac. PATRICIA EARLY Apr 04, 2017 12:51
[2017-04-04 13:37] VITALS: BP 107/65
--- NOTE | 2017-04-04 18:59 | Pulmonology Progress Note ---
Assessment/Plan Assessment/Plan Acute dyspnea Acute COPD excacerbation Hx Lung Cancer Hx COPD HTN Hypothyroidism Anxiety disorder Depression Dyslipidemia Plan Supplemental oxygen titrate fio2 up maintain o2 sat above 92% Aspiration precautions Labs examined Breathing treatments as needed for SOB Systemic corticosteroids Pulmonary hygiene Subjective ROS Limited/Unobtainable: No Constitutional: Reports: fatigue Respiratory: Reports: shortness of breath, wheezing Allergies: Coded Allergies: MEPERIDINE (Unverified Allergy, Unknown, 04/01/17) MORPHINE (Verified Allergy, Unknown, 08/28/16) PENICILLINS (Verified Allergy, Unknown, 08/28/16) SULFA (SULFONAMIDE ANTIBIOTICS) (Verified Allergy, Unknown, 08/28/16) THIMEROSAL (Unverified Allergy, Unknown, 04/01/17) Uncoded Allergies: Demoral (Allergy, Unknown, 08/28/16) thimersol (Allergy, Unknown, 08/28/16) Objective Last 24 Hour Vital Signs Date Time Temp Pulse Resp B/P (MAP) Pulse Ox O2 Delivery O2 Flow Rate FiO2 04/04/17 13:37 70 107/65 04/04/17 13:00 70 107/65 04/04/17 12:25 96.1 65 22 115/65 99 Room Air 04/04/17 09:00 70 102/58 04/04/17 09:00 102/58 04/04/17 08:00 97.3 72 20 99/75 99 Room Air 04/04/17 07:51 Room Air 04/04/17 07:46 73 16 Room Air 04/04/17 07:46 73 12 95 Room Air 04/04/17 04:00 97.0 65 20 102/60 92 Room Air 04/04/17 00:00 96.9 70 20 113/71 96 Room Air 04/03/17 23:00 Room Air 04/03/17 23:00 Room Air 04/03/17 20:00 96.8 63 20 96/65 98 Room Air 04/03/17 19:00 57 16 Room Air General Appearance: no acute distress HEENT: normocephalic, atraumatic, PERRL Respiratory/Chest: chest wall non-tender, decreased breath sounds, accessory muscle use, expiratory wheezing, inspiratory wheezing Breasts: no masses Cardiovascular: normal peripheral pulses, normal rate, regular rhythm, no JVD Abdomen: normal bowel sounds, soft, non tender, no organomegaly, non distended Genitourinary: normal external genitalia Extremities: no cyanosis Skin: no rash, no lesions 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, no motor/sensory deficits Laboratory Tests 04/04/17 05:10: White Blood Count 8.6, Red Blood Count 4.19L, Hemoglobin 12.1, Hematocrit 35.7L , Mean Corpuscular Volume 85, Mean Corpuscular Hemoglobin 28.8, Mean Corpuscular Hemoglobin Concent 33.8, Red Cell Distribution Width 12.8, Platelet Count 318, Mean Platelet Volume 6.1L, Neutrophils (%) (Auto) 74.2, Lymphocytes ( %) (Auto) 16.2L, Monocytes (%) (Auto) 8.6, Eosinophils (%) (Auto) 0.3, Basophils (%) (Auto) 0.7, Sodium Level 137, Potassium Level 3.8, Chloride Level 104, Carbon Dioxide Level 26, Anion Gap 7, Blood Urea Nitrogen 29H, Creatinine 0.9, Estimat Glomerular Filtration Rate , Glucose Level 114H, Calcium Level 9.1 AAMIR HAMMER Apr 04, 2017 18:59
--- NOTE | 2017-04-05 15:44 | Discharge Summary ---
Discharge Summary Hospital Course Date of Admission Mar 30, 2017 at 05:34 Date of Discharge Apr 04, 2017 at 14:35 Admitting Diagnosis HPI Anneliese Lewis is a 86 year old female who was admitted on Mar 30, 2017 at 05: 34 for Chronic Obstructive Pulmonary Disease,Exacerbation Hospital Course [id number] Discharge Discharge Disposition Patient was discharged to SNF/Subacute Facility(03) Discharge Diagnoses: Carmen Trejo NP Apr 05, 2017 15:44
--- NOTE | 2017-04-06 00:17 | Discharge Summary 2 SIG ---
DATE OF ADMISSION: 03/30/2017 DATE OF DISCHARGE: 04/04/2017 CONSULTANTS: 1. Gurpreet Gutierrez M.D. 2. Chauncey Giordano M.D. BRIEF HOSPITAL COURSE: The patient is a 86-year-old white female who presented to ED complaining of shortness of breath. She is a resident of [facility] and according to staff the patient became short of breath acutely. EMS was called. She was initially transported to [facility] where she was diagnosed to have COPD exacerbation. She was eventually transferred to [facility] for insurance purposes and the patient was admitted due to COPD acute exacerbation. She was given albuterol and Atrovent nebulization and was started on IV Solu-Medrol. She was continued on Cardizem and eyedrops for glaucoma. She was seen by Dr. Giordano and was diagnosed to have cognitive impairment. She was given Remeron. She was saturating well, symptoms improved and was eventually discharged to [facility]. FINAL DISPOSITION: The patient was discharged to SNF. FINAL DIAGNOSES: 1. Acute chronic obstructive pulmonary disease exacerbation. 2. Hypertension. 3. Hypothyroidism. 4. Hypercholesterolemia. 5. Glaucoma. 6. Anxiety. 7. Depression. 8. Cerebral aneurysm, stable. 9. Lung cancer. DISCHARGE MEDICATIONS: Refer to to medication list. Osmin Colon M.D. I have been assigned to dictate discharge summary on this account and I was not involved in the patient's management. Carmen Trejo N.P. DR: Rossana JOB#: [id number] CC: MICHELLE
== END 2017-04-04 14:35 | DRG 191 ==
LOC: MERGE 05:34 → 3E 05:34 → 4E 07:40 → 4W 04-03 08:02
DX: J44.1 Chronic obstructive pulmonary disease with (acute) exacerbation (principal); C34.90 Malignant neoplasm of unspecified part of unspecified bronchus or lung; I67.1 Cerebral aneurysm, nonruptured; I10 Essential (primary) hypertension; E03.9 Hypothyroidism, unspecified; E78.00 Pure hypercholesterolemia, unspecified; H40.9 Unspecified glaucoma; F32.89 Other specified depressive episodes; F41.9 Anxiety disorder, unspecified; Z88.0 Allergy status to penicillin; Z88.2 Allergy status to sulfonamides
CPT/HCPCS: 36415; 80048; 82962; 83735; 84100; 85007; 85025; 94640; 94664; J1815; J7620